=== PATIENT | female | born 1975 | race Caucasian/White ===

== ENCOUNTER → 2016-08-13 | Outpatient (CLI) | payer BC ==
--- NOTE | 2016-08-16 11:15 | MM ---
Reason for exam: additional evaluation requested from prior study. Last mammogram was performed 1 year ago. History: Patient had first child at age 36. Family history of premenopausal breast cancer in mother. Benign MG stereo VAD BX LT of the left breast, January 27, 2014. Took hormonal contraceptives for 19 years beginning at age 14. Physical Findings: Nurse did not find any significant physical abnormalities on exam. MG 3D Diag Mammo W/Cad MIHAI Bilateral CC and MLO view(s) were taken. Prior study comparison: August 08, 2015, bilateral MG 3d diag mammo w/cad MIHAI. August 02, 2014, bilateral MG diagnostic mammo w CAD MIHAI. January 18, 2014, left breast MG diagnostic mammo LT w CAD. July 28, 2013, bilateral digital screening mammo w/CAD. The breast tissue is heterogeneously dense. This may lower the sensitivity of mammography. Previous mammotome biopsy within the left breast. No significant new findings when compared with previous films. These results were verbally communicated with the patient and result sheet given to the patient on 08/13/16. ASSESSMENT: Negative, BI-RAD 1 RECOMMENDATION: Routine screening mammogram of both breasts in 1 year.
== END | disposition home or self-care (01) ==
LOC: RADMAMWWP 08:45
PROVIDERS: ATTEND Obstetrics & Gynecology
DX: R92.8 Other abnormal and inconclusive findings on diagnostic imaging of breast (principal)
CPT/HCPCS: G0204; G0279

== ENCOUNTER → 2017-07-30 | Outpatient (CLI) | payer BC ==
--- NOTE | 2017-07-30 11:23 | XR ---
EXAMINATION TYPE: XR chest 2V DATE OF EXAM: 07/30/2017 COMPARISON: NONE HISTORY: Cough for 4 months. TECHNIQUE: Frontal and lateral views of the chest are obtained. FINDINGS: There is retrocardiac opacity seen on 2 views. Right lung is clear. No pleural effusion or pneumothorax is present bilaterally. The cardiac silhouette size is within normal limits. The osse ous structures are intact. IMPRESSION: Suspect acute retrocardiac infiltrate.
== END ==
LOC: RADXRMAIN 10:45
PROVIDERS: ATTEND Otolaryngology
DX: R05 Cough (principal)
CPT/HCPCS: 71046

== ENCOUNTER → 2017-08-15 | Outpatient (CLI) | payer BC ==
--- NOTE | 2017-08-16 10:47 | MM ---
Reason for exam: screening (asymptomatic). Last mammogram was performed 1 year ago. History: Patient had first child at age 36. Family history of premenopausal breast cancer in mother. Benign MG stereo VAD BX LT of the left breast, January 27, 2014. Took hormonal contraceptives for 19 years beginning at age 14. Physical Findings: A clinical breast exam by your physician is recommended on an annual basis and results should be correlated with mammographic findings. MG 3D Screening Mammo W/Cad Bilateral CC and MLO view(s) were taken. Prior study comparison: August 13, 2016, bilateral MG 3d diag mammo w/cad MIHAI. August 08, 2015, bilateral MG 3d diag mammo w/cad MIHAI. The breast tissue is extremely dense which could obscure a lesion on mammography. No suspicious abnormality. Left biopsy marker noted. ASSESSMENT: Negative, BI-RAD 1 RECOMMENDATION: Routine screening mammogram of both breasts in 1 year.
== END | disposition home or self-care (01) ==
LOC: RADMAMWWP 09:00
PROVIDERS: ATTEND Obstetrics & Gynecology
DX: Z12.31 Encounter for screening mammogram for malignant neoplasm of breast (principal)
CPT/HCPCS: 77063; 77067

== ENCOUNTER → 2017-08-15 | Outpatient (CLI) | payer BC ==
--- NOTE | 2017-08-15 10:20 | XR ---
EXAMINATION TYPE: XR chest 2V DATE OF EXAM: 08/15/2017 COMPARISON: Chest x-ray July 30, 2017. HISTORY: Persistent cough. TECHNIQUE: Frontal and lateral views of the chest are obtained. FINDINGS: There is improved aeration in retrocardiac opacity. There is no new focal air space opacit y, pleural effusion, or pneumothorax seen. The cardiac silhouette size is stable and within normal l imits. The osseous structures are intact. IMPRESSION: Resolving retrocardiac infiltrate, no new infiltrate is seen.
== END | disposition home or self-care (01) ==
LOC: RADXRMAIN 09:18
PROVIDERS: ATTEND Otolaryngology
DX: R91.8 Other nonspecific abnormal finding of lung field (principal); R05 Cough
CPT/HCPCS: 71046

== ENCOUNTER → 2018-11-04 | Outpatient (CLI) | payer BC ==
--- NOTE | 2018-11-06 11:32 | MM ---
Reason for exam: screening (asymptomatic). Last mammogram was performed 1 year and 3 months ago. History: Patient had first child at age 36. Family history of premenopausal breast cancer in mother. Benign MG stereo VAD BX LT of the left breast, January 27, 2014. Took hormonal contraceptives for 19 years beginning at age 14. Physical Findings: A clinical breast exam by your physician is recommended on an annual basis and results should be correlated with mammographic findings. MG 3D Screening Mammo W/Cad Bilateral CC and MLO view(s) were taken. Prior study comparison: August 15, 2017, bilateral MG 3d screening mammo w/cad. August 13, 2016, bilateral MG 3d diag mammo w/cad MIHAI. The breast tissue is extremely dense which could obscure a lesion on mammography. Focal asymmetry left medial CC. No significant changes when compared with prior studies. ASSESSMENT: Benign, BI-RAD 2 RECOMMENDATION: Routine screening mammogram of both breasts in 1 year.
== END | disposition home or self-care (01) ==
LOC: RADMAMWWP 11:32
PROVIDERS: ATTEND Obstetrics & Gynecology
DX: Z12.31 Encounter for screening mammogram for malignant neoplasm of breast (principal); Z80.3 Family history of malignant neoplasm of breast
CPT/HCPCS: 77063; 77067

== ENCOUNTER → 2018-12-19 | Outpatient (CLI) | payer BC | END | disposition home or self-care (01) | LOC: LABWHC1 08:31 | PROVIDERS: ATTEND Internal Medicine Clinical Cardiac Electrophysiology | DX: I15.9 Secondary hypertension, unspecified (principal) | CPT/HCPCS: 36415; 82088; 82533; 83835 ==

== ENCOUNTER → 2019-02-03 | Outpatient (CLI) | payer BC ==
[2019-02-03 10:21] LABS: African American GFR (CKD) >90 (>60 ml/min/1.73 sqM); Anion Gap 8 mmol/L; Blood Urea Nitrogen 13 mg/dL (7-17); Carbon Dioxide 26 mmol/L (22-30); Chloride 105 mmol/L (98-107); HCT 43.1 % (34.0-46.0); HGB 13.7 gm/dL (11.4-16.0); MCHC 31.8 g/dL (31.0-37.0); MCV 97.5 fL (80.0-100.0); Mean Platelet Volume 6.1; Platelet Count 367 k/uL (150-450); Potassium 4.8 mmol/L (3.5-5.1); RBC 4.42 m/uL (3.80-5.40); RDW 12.2 % (11.5-15.5); Sodium 139 mmol/L (137-145); WBC 8.5 k/uL (3.8-10.6)
== END | disposition home or self-care (01) ==
LOC: LABPAT 08:44
PROVIDERS: ATTEND Internal Medicine Cardiovascular Disease
DX: Z01.812 Encounter for preprocedural laboratory examination (principal); I10 Essential (primary) hypertension
CPT/HCPCS: 36415; 80051; 82565; 84520; 85027

== ENCOUNTER 2019-02-05 08:01 | Day surgery (SDC) | payer BC ==
[2019-02-03 12:20] VITALS: BMI 31.4
[~2019-02-05 08:01] MED LIST: ALPRAZolam 0.25 MG TAB PO PRN; ALPRAZolam 0.5 MG TAB PO PRN; ASPIRIN 325 MG TAB PO STA; ATORVASTATIN 80 MG TAB PO STA; NITROGLYCERIN SL TABS 0.4 MG TAB SUBLINGUAL PRN; SODIUM CHLORIDE 0.9% 1,000 ML in EMPTY BAG 1 BAG IV ONE
[2019-02-05] MEDS ORDERED: LIDOCAINE 1% INJ 10MG/ML (20 ML MDV) ONE (08:29)
[2019-02-05 08:32] VITALS: RESP 16; TEMP 97.8
[2019-02-05] MEDS ORDERED: SODIUM CHLORIDE 0.9% 1,000 ML IV ONE (08:32)
[2019-02-05] MEDS: MIDAZOLAM 2 MG/2 ML VIAL IV ONE ×2 (08:49→08:55)
[2019-02-05] MEDS ORDERED: fentaNYL (PF) 50 MCG/ML 2 ML AMP ONE (08:50)
[2019-02-05] MEDS ORDERED: fentaNYL (PF) 50 MCG/ML 2 ML AMP IV ONE (08:54)
[2019-02-05] MEDS ORDERED: LIDOCAINE 1% INJ 10MG/ML (20 ML MDV) SQ ONE (09:00)
[2019-02-05] MEDS ORDERED: IOPAMIDOL-370 125ML BTL INJ ONE (09:09)
[2019-02-05] MEDS ORDERED: RX INFO: IV CONTRAST WAS GIVEN 1 EACH MISC MISCELLANE PRN (09:17)
[2019-02-05] MEDS ORDERED: SODIUM CHLORIDE 0.9% 1,000 ML IV SCH (09:30)
--- NOTE | 2019-02-05 09:38 | CC ---
CARDIAC CATHETERIZATION REPORT This is a 43-year-old lady who sees Dr. Rizzo in the office, had runs of nonsustained VT for which he advised her to undergo cardiac catheterization and requested me to perform the cardiac cath. Patient was explained of risks, benefits and alternatives by Dr. Rizzo and I spoke to the patient prior to procedure. . PROCEDURE NOTE: After obtaining informed consent, left heart catheterization and coronary angiogram were performed via the right femoral artery using standard Mario catheters. Patient tolerated the procedure well without any obvious immediate complications. A femoral angiogram was performed and Angio-Seal was deployed for hemostasis. Patient received moderate conscious sedation and total sedation time was 14 minutes. FINDINGS: 1. HEMODYNAMICS: Left ventricular end-diastolic pressure is 6-8 mm. There is no significant gradient across the aortic valve. 2. LEFT VENTRICULOGRAM: Left ventriculogram is not performed. 3. ANGIOGRAPHIC DATA: LEFT MAIN CORONARY ARTERY: Left main coronary artery is a normal-sized vessel and is free of stenosis. It divides into left anterior descending coronary artery and circumflex coronary artery. LAD and its branches, circumflex coronary artery and its branches are free of significant stenosis. Right coronary artery is a large dominant vessel and is free of significant disease. CONCLUSION: 1. Normal coronary arteries. 2. Normal left ventricular end-diastolic pressure. PLAN: Patient is doing well. I reviewed angiographic data with the patient and advised her to follow up with Dr. Rizzo in the office. MMODL / BRANDEEN: [id number] /
[2019-02-05 12:12] VITALS: PULSE 60
[2019-02-05 16:42] VITALS: BP 110/58
== END 2019-02-05 14:27 | disposition home or self-care (01) ==
LOC: CATHCVL 08:01
PROVIDERS: ATTEND Internal Medicine Cardiovascular Disease
DX: I47.2 Ventricular tachycardia (principal); I49.3 Ventricular premature depolarization; I10 Essential (primary) hypertension; F17.210 Nicotine dependence, cigarettes, uncomplicated; Z79.899 Other long term (current) drug therapy
CPT/HCPCS: 93458; 81025; C1760; C1894; C1769; J2250; J2001; J3010; Q9967

== ENCOUNTER → 2020-01-18 | Outpatient (CLI) | payer BC ==
--- NOTE | 2020-01-25 10:29 | MM ---
Reason for exam: screening (asymptomatic). Last mammogram was performed 1 year and 2 months ago. History: Patient had first child at age 36. Family history of premenopausal breast cancer in mother. Benign MG stereo VAD BX LT of the left breast, January 27, 2014. Took hormonal contraceptives for 19 years beginning at age 14. Physical Findings: A clinical breast exam by your physician is recommended on an annual basis and results should be correlated with mammographic findings. MG 3D Screening Mammo W/Cad Bilateral CC and MLO view(s) were taken. Prior study comparison: November 04, 2018, bilateral MG 3d screening mammo w/cad. August 15, 2017, bilateral MG 3d screening mammo w/cad. The breast tissue is heterogeneously dense. This may lower the sensitivity of mammography. Previous mammotome biopsy in the left breast. There is chronic nodularity in the left breast medially. No significant changes when compared with prior studies. ASSESSMENT: Benign, BI-RAD 2 RECOMMENDATION: Routine screening mammogram of both breasts in 1 year.
== END | disposition home or self-care (01) ==
LOC: RADMAMWWP 13:17
PROVIDERS: ATTEND Obstetrics & Gynecology
DX: Z12.31 Encounter for screening mammogram for malignant neoplasm of breast (principal)
CPT/HCPCS: 77063; 77067

== ENCOUNTER → 2020-01-19 | Outpatient (CLI) | payer BC ==
[2020-01-19 15:15] LABS: African American GFR (CKD) 126.7 (60.0-200.0); Anion Gap 10.3 mmol/L (4.00-12.00); Calcium 9.5 mg/dL (8.7-10.3); Carbon Dioxide 24.7 mmol/L (21.6-31.8); Chol/HDL Ratio 2.26; LDL Cholesterol,Calculated 41.6 mg/dL (0.0-131.0); Non-African American GFR(CKD) 109.3 (60.0-200.0); Potassium 4.8 mmol/L (3.5-5.5); VLDL Calculation 51.4 mg/dL (5.00-40.00)
== END | disposition home or self-care (01) ==
LOC: LABWHC1 08:51
PROVIDERS: ATTEND Physician Assistant
DX: I10 Essential (primary) hypertension (principal); E78.5 Hyperlipidemia, unspecified; R00.2 Palpitations
CPT/HCPCS: 36415; 80048; 80061; 84443

== ENCOUNTER → 2021-01-24 | Outpatient (CLI) | payer BC ==
--- NOTE | 2021-01-25 10:39 | MM ---
Reason for exam: screening (asymptomatic). Last mammogram was performed 1 year ago. History: Patient had first child at age 36. Family history of premenopausal breast cancer in mother. Benign MG stereo VAD BX LT of the left breast, January 27, 2014. Took hormonal contraceptives for 19 years beginning at age 14. Physical Findings: A clinical breast exam by your physician is recommended on an annual basis and results should be correlated with mammographic findings. MG 3D Screening Mammo W/Cad Bilateral CC and MLO view(s) were taken. Prior study comparison: January 18, 2020, bilateral MG 3d screening mammo w/cad. November 04, 2018, bilateral MG 3d screening mammo w/cad. The breast tissue is heterogeneously dense. This may lower the sensitivity of mammography. There is no discrete abnormality. No significant changes when compared with prior studies. ASSESSMENT: Negative, BI-RAD 1 RECOMMENDATION: Routine screening mammogram of both breasts in 1 year.
== END | disposition home or self-care (01) ==
LOC: RADMAMWWP 09:40
PROVIDERS: ATTEND Obstetrics & Gynecology
DX: Z12.31 Encounter for screening mammogram for malignant neoplasm of breast (principal)
CPT/HCPCS: 77063; 77067

== ENCOUNTER 2021-05-02 10:57 | Inpatient (IN) | payer BC ==
[2021-05-02] MEDS ORDERED: SODIUM CHLORIDE 0.9% 500 ML 500 ML IV STA (11:11)
--- NOTE | 2021-05-02 11:14 | ED ---
General Adult HPI - General Chief complaint: Chest Pain Stated complaint: heart palpitations, SOB Time Seen by Provider: 05/02/21 11:12 Source: patient, family, RN notes reviewed, old records reviewed Mode of arrival: wheelchair Limitations: no limitations - History of Present Illness Initial comments: This is a well-appearing 45-year-old female, alert and oriented x 4 that presents to the emergency room with family member complaining of palpitations and irregular heartbeat. Patient states it started at 6:30 this morning. She has a friend that is an ER doctor that told her she had an irregular heartbeat and should be seen in the ER. She states that she has seen Dr. Rizzo in the past had heart catheterization in 2019. History of atrial tachycardia. She states that her iPhone identified her rhythm as atrial fibrillation. She does take Lopressor and Norvasc denies taking an aspirin daily. She denies any nausea vomiting or fevers. -: hour(s) (5) Location: chest Radiation: non-radiation Severity scale (1-10): 0 Improves with: none Worsens with: none Associated Symptoms: shortness of breath Treatments Prior to Arrival: none - Related Data Home Medications Medication Instructions Recorded Confirmed ALPRAZolam [Xanax] 0.25 mg PO DAILY PRN 02/03/19 05/02/21 Latanoprost Ophth [Xalatan 0.005%] 1 drop BOTH EYES HS 05/02/21 05/02/21 Metoprolol Succinate (ER) [Toprol 75 mg PO DAILY 05/02/21 05/02/21 Xl] PARoxetine HCL [Paxil] 20 mg PO DAILY 05/02/21 05/02/21 Viorele 1 tab PO DAILY 05/02/21 05/02/21 amLODIPine [Norvasc] 1.25 mg PO HS 05/02/21 05/02/21 amLODIPine [Norvasc] 2.5 mg PO DAILY 05/02/21 05/02/21 Previous Rx's Medication Instructions Recorded Rivaroxaban [Xarelto] 20 mg PO W/SUPPER #90 tab 05/02/21 Allergies Allergy/AdvReac Type Severity Reaction Status Date / Time No Known Allergies Allergy Verified 05/02/21 13:35 Review of Systems ROS Statement: Those systems with pertinent positive or pertinent negative responses have been documented in the HPI. ROS Other: All systems not noted in ROS Statement are negative. Past Medical History Additional Past Medical History / Comment(s): states hx of palpitations, has been wearing 30 day heart monitor History of Any Multi-Drug Resistant Organisms: None Reported Past Surgical History: Section Past Anesthesia/Blood Transfusion Reactions: Previous Problems w/ Anesthesia Additional Past Anesthesia/Blood Transfusion Reaction / Comment(s): spinal went "up instead of down" gets nausea with anxiety Past Psychological History: Anxiety Smoking Status: Never smoker Past Alcohol Use History: Occasional Past Drug Use History: None Reported General Exam Limitations: no limitations General appearance: alert, in no apparent distress Eye exam: Present: normal appearance, EOMI. Absent: scleral icterus, conjunctival injection Respiratory exam: Present: normal lung sounds bilaterally. Absent: respiratory distress, wheezes, rales, rhonchi, stridor, chest wall tenderness, accessory muscle use Cardiovascular Exam: Present: tachycardia, irregular rhythm. Absent: JVD GI/Abdominal exam: Present: soft. Absent: tenderness, guarding, rebound, rigid Back exam: Present: normal inspection, full ROM. Absent: tenderness, CVA tenderness (R), CVA tenderness (L), rash noted Neurological exam: Present: alert, oriented X3 Psychiatric exam: Present: anxious Skin exam: Present: warm, dry, intact, normal color. Absent: rash, cyanosis, diaphoretic Course Vital Signs 05/02/21 05/02/21 05/02/21 11:02 12:14 12:23 Temperature 97.5 F L Pulse Rate 139 H 72 69 Respiratory 20 18 18 Rate Blood Pressure 158/102 160/128 88/67 O2 Sat by Pulse 99 98 95 Oximetry 05/02/21 05/02/21 05/02/21 12:39 13:23 14:49 Temperature Pulse Rate 84 75 71 Respiratory 18 18 18 Rate Blood Pressure 121/74 144/83 134/93 O2 Sat by Pulse 99 98 98 Oximetry 05/02/21 05/02/21 15:49 17:08 Temperature 98.9 F Pulse Rate 79 80 Respiratory 18 18 Rate Blood Pressure 140/95 157/87 O2 Sat by Pulse 98 96 Oximetry - Reevaluation(s) Reevaluation #1: 05/02/21 12:24 Called to the patient's bedside, patient states that she feels nauseated, hot and diaphoretic after Cardizem was started. Nurse states that the patient developed symptoms immediately upon starting Cardizem and was discontinued within 1 minute. Patient sinus rhythm 60 on monitor, blood pressure 89/67. Dr. Price at bedside. Patient was given 1 L bolus and Zofran, Cardizem was discon tinued. Patient denies any shortness of breath, lung sounds are clear to auscultation. No hives. Airway is clear no signs of swelling 05/02/21 17:38 Time: 12:24 Reevaluation #2: 05/02/21 12:58 Patient states that she is feeling much better, blood pressure is 120 systolic, heart rate of 75 normal sinus rhythm. Time: 12:58 EKG Findings - EKG Comments: EKG Findings:: Repeat EKG done at 1233 shows normal sinus rhythm with a ventricular rate of 75, CA interval 0.162, QRS 0.76, QTC 0.446 - EKG Results: EKG shows: atrial fibrillation (Ventricular rate 124, QRS 0.72, QTC 0.387; atrial fibrillation with rapid ventricular response) Medical Decision Making - Medical Decision Making 45-year-old female presents complaining of palpitations and irregular heartbeat that started at 6:30 this morning. She states that she has seen Dr. Rizzo in the past and had a heart catheterization in 2019. EKG shows atrial fibrillation with rapid ventricular rate of 124. Troponin is negative at 0.012. White blood cell count was 12.4, hemoglobin and hematocrit are stable. Co ronavirus is negative. TSH is within normal limits. Magnesium is 1.5 and she was given mag-ox. Chest x-ray shows no acute process. Patient was started on heparin and Cardizem. She did not tolerate the Cardizem infusion became diaphoretic nauseated, bradycardic and hypotensive. Airway remained clear. Lungs sounds are clear to auscultation. There is no urticaria. No bolus dose was given. Repeat EKG shows sinus rhythm. She was observed in the emergency room several hours after cardizem reaction and remained symptom-free. Patient will be admitted to the hospital for new onset atrial fibrillation. She was continued on heparin. Case was discussed with Dr. Price who was also at the bedside. - Lab Data Result diagrams: 05/02/21 11:47 05/02/21 11:47 Lab Results 05/02/21 05/02/21 05/02/21 Range/Units 11:47 11:47 11:47 WBC 12.4 H (3.8-10.6) k/uL RBC 4.40 (3.80-5.40) m/uL Hgb 14.9 (11.4-16.0) gm/dL Hct 45.6 (34.0-46.0) % MCV 103.7 H (80.0-100.0) fL MCH 33.8 (25.0-35.0) pg MCHC 32.6 (31.0-37.0) g/dL RDW 13.1 (11.5-15.5) % Plt Count 269 (150-450) k/uL MPV 7.5 Neutrophils % 84 % Lymphocytes % 11 % Monocytes % 3 % Eosinophils % 1 % Basophils % 0 % Neutrophils # 10.4 H (1.3-7.7) k/uL Lymphocytes # 1.4 (1.0-4.8) k/uL Monocytes # 0.4 (0-1.0) k/uL Eosinophils # 0.1 (0-0.7) k/uL Basophils # 0.0 (0-0.2) k/uL Macrocytosis Slight PT 10.2 (9.0-12.0) sec INR 0.9 (<1.2) APTT 24.5 (22.0-30.0) sec Sodium 137 (137-145) mmol/L Potassium 4.7 (3.5-5.1) mmol/L Chloride 108 H (98-107) mmol/L Carbon Dioxide 19 L (22-30) mmol/L Anion Gap 10 mmol/L BUN 10 (7-17) mg/dL Creatinine 0.45 L (0.52-1.04) mg/dL Est GFR (CKD-EPI)AfAm >90 (>60 ml/min/1.73 sqM) Est GFR (CKD-EPI)NonAf >90 (>60 ml/min/1.73 sqM) Glucose 117 H (74-99) mg/dL Calcium 9.3 (8.4-10.2) mg/dL Magnesium 1.5 L (1.6-2.3) mg/dL Total Bilirubin 0.6 (0.2-1.3) mg/dL AST 45 H (14-36) U/L ALT 23 (4-34) U/L Alkaline Phosphatase 101 (38-126) U/L Troponin I (0.000-0.034) ng/mL Total Protein 7.8 (6.3-8.2) g/dL Albumin 4.3 (3.5-5.0) g/dL TSH 2.650 (0.465-4.680) mIU/L 05/02/21 Range/Units 11:47 WBC (3.8-10.6) k/uL RBC (3.80-5.40) m/uL Hgb (11.4-16.0) gm/dL Hct (34.0-46.0) % MCV (80.0-100.0) fL MCH (25.0-35.0) pg MCHC (31.0-37.0) g/dL RDW (11.5-15.5) % Plt Count (150-450) k/uL MPV Neutrophils % % Lymphocytes % % Monocytes % % Eosinophils % % Basophils % % Neutrophils # (1.3-7.7) k/uL Lymphocytes # (1.0-4.8) k/uL Monocytes # (0-1.0) k/uL Eosinophils # (0-0.7) k/uL Basophils # (0-0.2) k/uL Macrocytosis PT (9.0-12.0) sec INR (<1.2) APTT (22.0-30.0) sec Sodium (137-145) mmol/L Potassium (3.5-5.1) mmol/L Chloride (98-107) mmol/L Carbon Dioxide (22-30) mmol/L Anion Gap mmol/L BUN (7-17) mg/dL Creatinine (0.52-1.04) mg/dL Est GFR (CKD-EPI)AfAm (>60 ml/min/1.73 sqM) Est GFR (CKD-EPI)NonAf (>60 ml/min/1.73 sqM) Glucose (74-99) mg/dL Calcium (8.4-10.2) mg/dL Magnesium (1.6-2.3) mg/dL Total Bilirubin (0.2-1.3) mg/dL AST (14-36) U/L ALT (4-34) U/L Alkaline Phosphatase (38-126) U/L Troponin I <0.012 (0.000-0.034) ng/mL Total Protein (6.3-8.2) g/dL Albumin (3.5-5.0) g/dL TSH (0.465-4.680) mIU/L Critical Care Time Critical Care Time: Yes Total Critical Care Time: 32 (Patient had adverse reaction to Cardizem drip became bradycardic, hypotensive, diaphoretic) Disposition Clinical Impression: New onset a-fib, Atrial fibrillation with RVR Disposition: ADMITTED IP TO THIS HOSP Decision Date: 05/02/21 Decision Time: 13:19
[2021-05-02] MEDS ORDERED: DILTIAZEM 125 MG in SODIUM CHLORIDE 0.9% 100 ML IV SCH (11:30)
[2021-05-02] MEDS ORDERED: ASPIRIN 81 MG PO STA (11:31)
[2021-05-02] MEDS ORDERED: HEPARIN SODIUM 1,000 UN/ML (10ML VL) IV ONE (11:34)
[2021-05-02] MEDS ORDERED: HEPARIN SODIUM 1,000 UN/ML (10ML VL) IV PRN (11:34)
[2021-05-02] MEDS ORDERED: HEPARIN SOD,PORK IN 0.45% NACL 25,000 UNIT in 0.45% NACL 1 250ML.BAG IV SCH (11:45)
--- NOTE | 2021-05-02 12:04 | XR ---
EXAMINATION TYPE: XR chest 2V DATE OF EXAM: 05/02/2021 COMPARISON: Prior chest x-ray August 15, 2017 HISTORY: Palpitations, shortness of breath, and chest pain. TECHNIQUE: Frontal and lateral views of the chest are obtained. FINDINGS: There is no suspicious focal air space opacity, pleural effusion, or pneumothorax seen. T he cardiac silhouette size remains within normal limits. The osseous structures are intact. Overlyi ng EKG leads are now present. IMPRESSION: No acute process currently.
[2021-05-02 12:14] LABS: Basophils % (A) 0 %; Eosinophils # (A) 0.1 k/uL (0-0.7); Eosinophils % (A) 1 %; HCT 45.6 % (34.0-46.0); HGB 14.9 gm/dL (11.4-16.0); Lymphocytes # (A) 1.4 k/uL (1.0-4.8); Lymphocytes % (A) 11 %; MCH 33.8 pg (25.0-35.0); MCHC 32.6 g/dL (31.0-37.0); MCV 103.7 fL (80.0-100.0); Macrocytosis Slight; Mean Platelet Volume 7.5; Monocytes # (A) 0.4 k/uL (0-1.0); Monocytes % (A) 3 %; Neutrophils # (A) 10.4 k/uL (1.3-7.7); Neutrophils % (A) 84 %; Platelet Count 269 k/uL (150-450); RDW 13.1 % (11.5-15.5); WBC 12.4 k/uL (3.8-10.6)
[2021-05-02 12:19] LABS: ALT 23 U/L (4-34); AST 45 U/L (14-36); African American GFR (CKD) >90 (>60 ml/min/1.73 sqM); Albumin 4.3 g/dL (3.5-5.0); Alkaline Phosphatase 101 U/L (38-126); Anion Gap 10 mmol/L; Blood Urea Nitrogen 10 mg/dL (7-17); Calcium 9.3 mg/dL (8.4-10.2); Carbon Dioxide 19 mmol/L (22-30); Chloride 108 mmol/L (98-107); Glucose 117 mg/dL (74-99); Magnesium 1.5 mg/dL (1.6-2.3); Non-African American GFR(CKD) >90 (>60 ml/min/1.73 sqM); Potassium 4.7 mmol/L (3.5-5.1); Sodium 137 mmol/L (137-145); Total Bilirubin 0.6 mg/dL (0.2-1.3); Total Protein 7.8 g/dL (6.3-8.2)
[2021-05-02] MEDS ORDERED: SODIUM CHLORIDE 0.9% 1,000 ML IV STA (12:23)
[2021-05-02] MEDS ORDERED: ONDANSETRON 4 MG/2 ML VIAL IVP STA (12:23)
[2021-05-02] MEDS ORDERED: MAGNESIUM OXIDE 400 MG TAB PO STA (12:28)
[2021-05-02 12:41] LABS: INR 0.9 (<1.2); Partial Thromboplastin Time 24.5 sec (22.0-30.0); Prothrombin Time 10.2 sec (9.0-12.0)
[2021-05-02] MEDS ORDERED: ACETAMINOPHEN TAB 325 MG TAB PO PRN (13:19)
[2021-05-02] MEDS ORDERED: NALOXONE 0.4 MG/ML 1 ML VIAL IV PRN (13:19)
[2021-05-02] MEDS ORDERED: ONDANSETRON 4 MG/2 ML VIAL IVP PRN (13:19)
[2021-05-02] MEDS: SODIUM CHLORIDE 0.9% 1,000 ML IV SCH (13:55)
--- NOTE | 2021-05-02 14:42 | P.CRDCN ---
History of Present Illness Consult date: 05/02/21 History of present illness: HISTORY OF PRESENT ILLNESS: This is a 45 year old female with a past medical history significant for nonsustained ventricular tachycardia and hypertension. Patient follows in the office with Dr. Rizzo. We have been asked to see the patient in consultation for atrial fibrillation. Patient examined at the bedside. patient states she woke up this morning and was having palpitations. She reports feeling mildly short of breath with this. She denies having any chest pain or pressure. She states she has had palpitations intermittently in the past but they usually only last for a very short time and then go away. However this episode lasted much longer so she decided to come to the emergency room. The patient was found to be in A. fib with RVR upon arrival to the hospital. Patient was started on IV Cardizem and developed some hypotension and diaphoresis. Her IV Cardizem was discontinued. The patient did convert to sinus mechanism. the patient was also started on IV heparin. The patient is a former smoker. She reports occasional alcohol use. She denies any family history of atrial fibrillation. EKG reveals atrial fibrillation with RVR. Repeat EKG reveals sinus mechanism. Chest xray negative for acute process Laboratory data: WBC 12.4. Hemoglobin 14.9. Platelet count 269. Sodium 137. Potassium 4.7. BUN 10. Creatinine 0.45. Magnesium 1.5. Troponin negative 1. TSH 2.620. Coronavirus testing was negative. Current home cardiac medications include metoprolol succinate 75 mg daily, and Norvasc 2.5 mg in the morning and 1.25 mg at night Most recent echocardiogram obtained in 2019 revealed ejection fraction 55%, mild LVH, and RVSP of 31 Cardiac catheterization history: January 2019 revealing normal coronary arteries. Normal left ventricular end-diastolic pressure. REVIEW OF SYSTEMS: At the time of my exam: CONSTITUTIONAL: Denies fever or chills. HEENT: Denies blurred vision, vision changes, or eye pain. Denies hemoptysis CARDIOVASCULAR: Denies chest pain. Denies orthopnea. Denies PND. Denies palpitations RESPIRATORY: Denies shortness of breath. GASTROINTESTINAL: Denies abdominal pain. Denies nausea or vomiting. HEMATOLOGIC: Denies bleeding disorders. GENITOURINARY: Denies any blood in urine. SKIN: Denies pruitis. Denies rash. PHYSICAL EXAM: VITAL SIGNS: Reviewed. GENERAL: Well-developed in no acute distress. HEENT: Head is normocephalic. Pupils are equal, round. Sclerae anicteric. Mucous membranes of the mouth are moist. Neck supple. No JVD or thyromegaly LUNGS: Respirations even and unlabored. Lungs essentially clear to auscultation bilaterally. HEART: Regular rate and rhythm. S1 and S2 heard. ABDOMEN: Soft. Nondistended. Nontender. EXTREMITIES: Normal range of motion. No clubbing or cyanosis. Peripheral pulses intact. No lower extremity edema NEUROLOGIC: Awake and alert. Oriented x 3. ASSESSMENT: Palpitations New onset paroxysmal atrial fibrillation with RVR, currently maintaining sinus mechanism Hypertension, uncontrolled on admission History of nonsustained ventricular tachycardia Hypomagnesemia PLAN: Obtain 2D echo to assess cardiac structure and function Begin Xarelto 20mg tonight. DC IV heparin after Xarelto has been given Resume Metoprolol. Increase dosage to 100mg daily. Resume amlodipine. Increase dosage to 5 mg twice a day as patient has uncontrolled hypertension Continue telemetry monitoring Magnesium supplemented in ER. Recheck tomorrow. Further recommendations pending patient course Nurse practitioner note has been reviewed by physician. Signing provider agrees with the documented findings, assessment, and plan of care. Past Medical History Additional Past Medical History / Comment(s): states hx of palpitations, has been wearing 30 day heart monitor History of Any Multi-Drug Resistant Organisms: None Reported Past Surgical History: Section Past Anesthesia/Blood Transfusion Reactions: Previous Problems w/ Anesthesia Additional Past Anesthesia/Blood Transfusion Reaction / Comment(s): spinal went "up instead of down" gets nausea with anxiety Past Psychological History: Anxiety Smoking Status: Never smoker Past Alcohol Use History: Occasional Past Drug Use History: None Reported Medications and Allergies Home Medications Medication Instructions Recorded Confirmed Type ALPRAZolam [Xanax] 0.25 mg PO DAILY PRN 02/03/19 05/02/21 History Latanoprost Ophth [Xalatan 0.005%] 1 drop BOTH EYES HS 05/02/21 05/02/21 History Metoprolol Succinate (ER) [Toprol 75 mg PO DAILY 05/02/21 05/02/21 History Xl] PARoxetine HCL [Paxil] 20 mg PO DAILY 05/02/21 05/02/21 History Rivaroxaban [Xarelto] 20 mg PO W/SUPPER #90 tab 05/02/21 Rx Viorele 1 tab PO DAILY 05/02/21 05/02/21 History amLODIPine [Norvasc] 1.25 mg PO HS 05/02/21 05/02/21 History amLODIPine [Norvasc] 2.5 mg PO DAILY 05/02/21 05/02/21 History Allergies Allergy/AdvReac Type Severity Reaction Status Date / Time No Known Allergies Allergy Verified 05/02/21 13:35 Physical Exam Vitals: Vital Signs Temp Pulse Resp BP Pulse Ox 05/02/21 13:23 75 18 144/83 98 05/02/21 12:39 84 18 121/74 99 05/02/21 12:23 69 18 88/67 95 05/02/21 12:14 72 18 160/128 98 05/02/21 11:02 97.5 F L 139 H 20 158/102 99 Intake and Output 05/01/21 05/02/21 05/02/21 22:59 06:59 14:59 Other: Weight 90.718 kg Results 05/02/21 11:47 05/02/21 11:47 Cardiac Enzymes 05/02/21 05/02/21 Range/Units 11:47 11:47 AST 45 H (14-36) U/L Troponin I <0.012 (0.000-0.034) ng/mL Coagulation 05/02/21 Range/Units 11:47 PT 10.2 (9.0-12.0) sec APTT 24.5 (22.0-30.0) sec CBC 05/02/21 Range/Units 11:47 WBC 12.4 H (3.8-10.6) k/uL RBC 4.40 (3.80-5.40) m/uL Hgb 14.9 (11.4-16.0) gm/dL Hct 45.6 (34.0-46.0) % Plt Count 269 (150-450) k/uL Comprehensive Metabolic Panel 05/02/21 Range/Units 11:47 Sodium 137 (137-145) mmol/L Potassium 4.7 (3.5-5.1) mmol/L Chloride 108 H (98-107) mmol/L Carbon Dioxide 19 L (22-30) mmol/L BUN 10 (7-17) mg/dL Creatinine 0.45 L (0.52-1.04) mg/dL Glucose 117 H (74-99) mg/dL Calcium 9.3 (8.4-10.2) mg/dL AST 45 H (14-36) U/L ALT 23 (4-34) U/L Alkaline Phosphatase 101 (38-126) U/L Total Protein 7.8 (6.3-8.2) g/dL Albumin 4.3 (3.5-5.0) g/dL Current Medications Generic Name Dose Route Start Last Admin Trade Name Freq PRN Reason Stop Dose Admin Acetaminophen 650 mg 05/02/21 13:19 Acetaminophen Tab 325 Mg Tab PO Q6HR PRN Mild Pain or Fever > 100.5 Heparin Sodium (Porcine) 0 unit 05/02/21 11:34 Heparin Sodium 1,000 Un/Ml (10ml Vl) IV PER PROTOCOL PRN Low PTT Protocol Diltiazem HCl 125 mg/ Sodium 125 mls @ 5 mls/hr 05/02/21 11:30 05/02/21 12:05 Chloride IV 5 mg/hr .Q24H WENCESLAO 5 mls/hr Administration 5 MG/HR Heparin Sodium/Sodium Chloride 250 mls @ 10 mls/hr 05/02/21 11:45 05/02/21 12:13 25,000 unit/ Sodium Chloride IV 11.023 units/kg/hr .Q24H WENCESLAO 10 mls/hr Administration Protocol 11.023 UNITS/KG/HR Sodium Chloride 1,000 mls @ 75 mls/hr 05/02/21 13:30 05/02/21 13:55 Saline 0.9% IV 75 mls/hr .[id number] WENCESLAO Administration Naloxone HCl 0.2 mg 05/02/21 13:19 Naloxone 0.4 Mg/Ml 1 Ml Vial IV Q2M PRN Opioid Reversal Ondansetron HCl 4 mg 05/02/21 13:19 Ondansetron 4 Mg/2 Ml Vial IVP Q8HR PRN Nausea And Vomiting Intake and Output 05/01/21 05/02/21 05/02/21 22:59 06:59 14:59 Other: Weight 90.718 kg Patient Weight 05/03/21 06:59 Weight 90.718 kg 05/02/21 11:47 05/02/21 11:47
[2021-05-02] MEDS ORDERED: METOPROLOL SUCCINATE (ER) 25 MG TAB.ER.24H PO SCH (14:45)
[2021-05-02] MEDS ORDERED: amLODIPine 5 MG TAB PO SCH (14:45)
[2021-05-02] MEDS: METOPROLOL SUCCINATE (ER) 100 MG TAB.ER.24H PO SCH (15:48)
[2021-05-02] MEDS: FOLIC ACID 1 MG TAB PO SCH (15:48)
[2021-05-02] MEDS ORDERED: RIVAROXABAN 20 MG TAB PO SCH (17:30)
[2021-05-02] MEDS: THIAMINE 100 MG TAB PO SCH (18:40)
[2021-05-02] MEDS: amLODIPine 5 MG TAB PO SCH (20:10)
[2021-05-02] MEDS ORDERED: LATANOPROST 0.005% OPHTH DROPS 2.5 ML BTL BOTH EYES SCH (21:00)
--- NOTE | 2021-05-03 00:23 | P.HPIM ---
History of Present Illness H&P Date: 05/02/21 Chief Complaint: palpitations Patient is a 45-year-old female with a known history of palpitations, anxiety, daily alcohol use and previous history of nonsustained V. tach, hypertension presents to ER with complaints of palpitations. Patient woke up this morning and since then she has been having heart beating fast and dizziness. Patient is also having mild short of breath. Denies any chest pain. No fever no chills. No cough or sputum production. Patient does have history of palpitations and is on follow-up with Dr. Rizzo as an outpatient. Denied any recent illnesses. Patient states that she has been drinking about 2 glasses of wine daily. Chest x-ray showed no acute cardiopulmonary process EKG showed atrial fibrillation with rapid ventricular rate. Laboratory data showed WBC 12.4 hemoglobin 14.9 and MCV 103.7 platelets 269 Sodium 137 potassium 4.7 chloride 108 bicarb is 18 BUN 10 and creatinine 0.45 magnesium 1.5 AST 45 ALT 23 and alk phos 101 and troponin less than 0.012 TSH level is 2.65 and coronavirus PCR not detected. Review of Systems Constitutional: Patient denies any fever or chills . No generalized weakness or weight loss. Abdomen: Patient denied nausea vomiting and diarrhea and abdominal pain. Cardiovascular: Patient denies any chest pain or short of breath . +palpitations. Respiratory: patient denied any cough or sputum production. No shortness of breath Neurologic: Patient denied any numbness or tingling headache. Musculoskeletal: Patient denies any complaints of joint swelling or deformity. Skin: Negative Psychiatric: Negative Endocrine: No heat or cold intolerance. No recent weight gain. Genitourinary: No dysuria or hematuria. All other 14 point ROS negative except the above Past Medical History Additional Past Medical History / Comment(s): states hx of palpitations, has been wearing 30 day heart monitor History of Any Multi-Drug Resistant Organisms: None Reported Past Surgical History: Section Past Anesthesia/Blood Transfusion Reactions: Previous Problems w/ Anesthesia Additional Past Anesthesia/Blood Transfusion Reaction / Comment(s): spinal went "up instead of down" gets nausea with anxiety Past Psychological History: Anxiety Smoking Status: Never smoker Past Alcohol Use History: Occasional Past Drug Use History: None Reported - Past Family History Mother Family Medical History: Cancer Father Additional Family Medical History / Comment(s): at age 56 unknown Medications and Allergies Home Medications Medication Instructions Recorded Confirmed Type ALPRAZolam [Xanax] 0.25 mg PO DAILY PRN 02/03/19 05/02/21 History Latanoprost Ophth [Xalatan 0.005%] 1 drop BOTH EYES HS 05/02/21 05/02/21 History Metoprolol Succinate (ER) [Toprol 75 mg PO DAILY 05/02/21 05/02/21 History Xl] PARoxetine HCL [Paxil] 20 mg PO DAILY 05/02/21 05/02/21 History Rivaroxaban [Xarelto] 20 mg PO W/SUPPER #90 tab 05/02/21 Rx Viorele 1 tab PO DAILY 05/02/21 05/02/21 History amLODIPine [Norvasc] 1.25 mg PO HS 05/02/21 05/02/21 History amLODIPine [Norvasc] 2.5 mg PO DAILY 05/02/21 05/02/21 History Allergies Allergy/AdvReac Type Severity Reaction Status Date / Time No Known Allergies Allergy Verified 05/02/21 13:35 Physical Exam Vitals: Vital Signs Temp Pulse Resp BP Pulse Ox 05/02/21 13:23 75 18 144/83 98 05/02/21 12:39 84 18 121/74 99 05/02/21 12:23 69 18 88/67 95 05/02/21 12:14 72 18 160/128 98 05/02/21 11:02 97.5 F L 139 H 20 158/102 99 Intake and Output 05/01/21 05/02/21 05/02/21 22:59 06:59 14:59 Other: Weight 90.718 kg PHYSICAL EXAMINATION: Patient is lying in the bed comfortably, no acute distress, awake alert and oriented.. HEENT: Normocephalic. Neck is supple. Pupils reactive. Nostrils clear. Oral cavity is moist. Neck reveals no JVD, carotid bruits, or thyromegaly. CHEST EXAMINATION: Trachea is central. Symmetrical expansion. Lung costa clear to auscultation and percussion. CARDIAC: Normal S1, S2 with no gallops. No murmurs ABDOMEN: Soft. Bowel sounds normal. No organomegaly. No abdominal bruits. Extremities: reveal no edema. No clubbing or cyanosis Neurologically awake, alert, oriented x3 with well-coordinated movements. No focal deficits noted Skin: No rash or skin lesions. Psychiatric: Cooperative. Nonsuicidal, anxious Musculoskeletal: No joint swelling or deformity. Normal range of motion. Results CBC & Chem 7: 05/02/21 11:47 05/02/21 11:47 Labs: Abnormal Lab Results - Last 24 Hours (Table) 05/02/21 05/02/21 Range/Units 11:47 11:47 WBC 12.4 H (3.8-10.6) k/uL MCV 103.7 H (80.0-100.0) fL Neutrophils # 10.4 H (1.3-7.7) k/uL Chloride 108 H (98-107) mmol/L Carbon Dioxide 19 L (22-30) mmol/L Creatinine 0.45 L (0.52-1.04) mg/dL Glucose 117 H (74-99) mg/dL Magnesium 1.5 L (1.6-2.3) mg/dL AST 45 H (14-36) U/L Thrombosis Risk Factor Assmnt - DVT/VTE Prophylaxis DVT/VTE Prophylaxis: Pharmacologic Prophylaxis ordered Assessment and Plan Assessment: New onset atrial fibrillation with rapid regular rate. Currently converted to sinus rhythm. History of palpitations and is on follow-up with cardiology, was on event monitor. Uncontrolled hypertension Daily alcohol use Hypomagnesemia \\ anxiety/depression Macrocytosis secondary to EtOH use Plan: Placed on telemetry monitoring. Patient was started on Cardizem drip and heparin drip. Heart rate is controlled at this time. Patient will be started back on metoprolol. Patient was started on Xarelto as per cardiology recommendations. Patient will be started on thiamine and folic acid and monitor for alcohol withdrawal symptoms.Continue with IV hydration. Cardiology is on board. Continue to follow closely. Time with Patient: Greater than 30
[2021-05-03 01:18] VITALS: RESP 18
[2021-05-03] MEDS: SODIUM CHLORIDE 0.9% 1,000 ML IV SCH ×2 (05:05→11:06)
--- NOTE | 2021-05-03 07:48 | ECHOF ---
Referral Reason:new onset afib MEASUREMENTS -------- HEIGHT: 165.1 cm WEIGHT: 90.7 kg BP: RVIDd: 2.9 cm (< 3.3) IVSd: 1.1 cm (0.6 - 1.1) LVIDd: 4.9 cm (3.9 - 5.3) LVPWd: 1.0 cm (0.6 - 1.1) IVSs: 1.6 cm LVIDs: 3.3 cm LVPWs: 1.5 cm LA Diam: 4.0 cm (2.7 - 3.8) LAESV Index (A-L): 33.01 ml/m MV EXCURSION: 15.618 mm (> 18.000) MV EF SLOPE: 60 mm/s (70 - 150) EPSS: 0.3 cm MV E Hitesh: 0.55 m/s MV DecT: 201 ms MV A Hitesh: 0.99 m/s MV E/A Ratio: 0.56 RAP: 5.00 mmHg RVSP: 35.53 mmHg FINDINGS -------- Sinus rhythm. This was a technically good study. LV size, wall thickness and systolic function are normal, with an EF greater than 55%. The left jorge tricular size is normal. The right ventricle is normal in size. LA is midly dilated 29-33ml/m2. The right atrial size is normal. The aortic valve is trileaflet, and appears structurally normal. No aortic stenosis or regurgitation. Mild mitral regurgitation is present. Mild tricuspid regurgitation present. There is mild pulmonary hypertension. There is no pulmonic regurgitation present. There is no pericardial effusion. CONCLUSIONS -------- 1. LV size, wall thickness and systolic function are normal, with an EF greater than 55%. 2. The left ventricular size is normal. 3. The right ventricle is normal in size. 4. LA is midly dilated 29-33ml/m2. 5. The right atrial size is normal. 6. The aortic valve is trileaflet, and appears structurally normal. No aortic stenosis or regurgitati on. 7. Mild mitral regurgitation is present. 8. Mild tricuspid regurgitation present. 9. There is mild pulmonary hypertension. 10. There is no pericardial effusion. MUSHROOM PRESS OPERATOR: Scarlet Hays RDCS
[2021-05-03 08:15] LABS: Basophils % (A) 0 %; Eosinophils # (A) 0.1 k/uL (0-0.7); Eosinophils % (A) 1 %; HGB 13.8 gm/dL (11.4-16.0); Lymphocytes # (A) 1.9 k/uL (1.0-4.8); Lymphocytes % (A) 23 %; MCH 33.6 pg (25.0-35.0); MCHC 31.4 g/dL (31.0-37.0); Macrocytosis Moderate; Mean Platelet Volume 7.8; Monocytes # (A) 0.5 k/uL (0-1.0); Monocytes % (A) 6 %; Neutrophils # (A) 5.5 k/uL (1.3-7.7); Neutrophils % (A) 69 %; Platelet Count 237 k/uL (150-450); RBC 4.11 m/uL (3.80-5.40); RDW 12.4 % (11.5-15.5)
[2021-05-03 08:18] LABS: Prothrombin Time 10.9 sec (9.0-12.0)
[2021-05-03 08:40] LABS: African American GFR (CKD) >90 (>60 ml/min/1.73 sqM); Anion Gap 8 mmol/L; Blood Urea Nitrogen 7 mg/dL (7-17); Calcium 8.8 mg/dL (8.4-10.2); Carbon Dioxide 22 mmol/L (22-30); Chloride 107 mmol/L (98-107); Glucose 100 mg/dL (74-99); Magnesium 1.8 mg/dL (1.6-2.3); Non-African American GFR(CKD) >90 (>60 ml/min/1.73 sqM); Potassium 4.2 mmol/L (3.5-5.1); Sodium 137 mmol/L (137-145)
[2021-05-03 08:48] VITALS: BP 156/87; PULSE 75; TEMP 98
[2021-05-03] MEDS: THIAMINE 100 MG TAB PO SCH (08:48)
[2021-05-03] MEDS: METOPROLOL SUCCINATE (ER) 100 MG TAB.ER.24H PO SCH (08:48)
[2021-05-03] MEDS: FOLIC ACID 1 MG TAB PO SCH (08:49)
[2021-05-03] MEDS: amLODIPine 5 MG TAB PO SCH (08:49)
[2021-05-03] MEDS ORDERED: PARoxetine 20 MG TAB PO SCH (09:00)
--- NOTE | 2021-05-03 12:24 | P.PN ---
Subjective Progress Note Date: 05/03/21 HISTORY OF PRESENT ILLNESS: This is a 45 year old female with a past medical history significant for nonsustained ventricular tachycardia and hypertension. Patient follows in the office with Dr. Rizzo. We have been asked to see the patient in consultation for atrial fibrillation. Patient examined at the bedside. patient states she woke up this morning and was having palpitations. She reports feeling mildly short of breath with this. She denies having any chest pain or pressure. She states she has had palpitations intermittently in the past but they usually only last for a very short time and then go away. However this episode lasted much longer so she decided to come to the emergency room. The patient was found to be in A. fib with RVR upon arrival to the hospital. Patient was started on IV Cardizem and developed some hypotension and diaphoresis. Her IV Cardizem was discontinued. The patient did convert to sinus mechanism. the patient was also started on IV heparin. The patient is a former smoker. She reports occasional alcohol use. She denies any family history of atrial fibrillation. EKG reveals atrial fibrillation with RVR. Repeat EKG reveals sinus mechanism. Chest xray negative for acute process Laboratory data: WBC 12.4. Hemoglobin 14.9. Platelet count 269. Sodium 137. Potassium 4.7. BUN 10. Creatinine 0.45. Magnesium 1.5. Troponin negative 1. TSH 2.620. Coronavirus testing was negative. Current home cardiac medications include metoprolol succinate 75 mg daily, and Norvasc 2.5 mg in the morning and 1.25 mg at night Most recent echocardiogram obtained in 2018 revealed ejection fraction 55%, mild LVH, and RVSP of 31 Cardiac catheterization history: January 2019 revealing normal coronary arteries. Normal left ventricular end-diastolic pressure. 05/03/2021 Patient examined this where the bedside. Patient denies chest pain or pressure. She denies shortness of breath. Telemetry reveals sinus mechanism. Patient has been started on Xarelto. Patient's amlodipine was increased yesterday. Blood pressure slightly improved today. Echocardiogram completed revealing ejection fraction greater than 55%, mild mitral regurgitation, and mild tricuspid regurgitation. PHYSICAL EXAM: VITAL SIGNS: Reviewed. GENERAL: Well-developed in no acute distress. HEENT: Head is normocephalic. Pupils are equal, round. Sclerae anicteric. Mucous membranes of the mouth are moist. Neck supple. No JVD or thyromegaly LUNGS: Respirations even and unlabored. Lungs essentially clear to auscultation bilaterally. HEART: Regular rate and rhythm. S1 and S2 heard. ABDOMEN: Soft. Nondistended. Nontender. EXTREMITIES: Normal range of motion. No clubbing or cyanosis. Peripheral pulses intact. No lower extremity edema NEUROLOGIC: Awake and alert. Oriented x 3. ASSESSMENT: Palpitations New onset paroxysmal atrial fibrillation with RVR, currently maintaining sinus mechanism Hypertension, uncontrolled on admission History of nonsustained ventricular tachycardia Hypomagnesemia Frequent alcohol use PLAN: Recommend abstinence from alcohol Continue current cardiac medications including Xarelto, amlodipine, and metoprolol Recommend outpatient evaluation of sleep apnea Patient is stable for discharge home today from a cardiac standpoint She is to follow up outpatient with Dr. Rizzo Nurse practitioner note has been reviewed by physician. Signing provider agrees with the documented findings, assessment, and plan of care. Objective - Vital Signs Vital signs: Vital Signs Temp 98 F 05/03/21 08:00 Pulse 75 05/03/21 08:00 Resp 18 05/03/21 08:00 BP 156/87 05/03/21 08:00 Pulse Ox 96 05/03/21 08:00 Intake & Output 05/02/21 05/03/21 05/03/21 18:59 06:59 18:59 Intake Total 180 Balance 180 Weight 90.718 kg Intake: Oral 180 Other: # Voids 2 - Labs CBC & Chem 7: 05/03/21 06:53 05/03/21 06:53 Labs: Abnormal Lab Results - Last 24 Hours (Table) 05/02/21 05/02/21 05/03/21 Range/Units 11:47 17:05 06:53 MCV 107.0 H (80.0-100.0) fL APTT 30.7 H (22.0-30.0) sec Chloride 108 H (98-107) mmol/L Carbon Dioxide 19 L (22-30) mmol/L Creatinine 0.45 L (0.52-1.04) mg/dL Glucose 117 H (74-99) mg/dL Magnesium 1.5 L (1.6-2.3) mg/dL AST 45 H (14-36) U/L 05/03/21 Range/Units 06:53 MCV (80.0-100.0) fL APTT (22.0-30.0) sec Chloride (98-107) mmol/L Carbon Dioxide (22-30) mmol/L Creatinine 0.45 L (0.52-1.04) mg/dL Glucose 100 H (74-99) mg/dL Magnesium (1.6-2.3) mg/dL AST (14-36) U/L
== END 2021-05-03 13:18 | disposition home or self-care (01) | DRG 310 ==
LOC: EC 10:57 → 3SCARD 13:19
PROVIDERS: ADMIT Hospitalist; ATTEND Hospitalist
DX: I48.0 Paroxysmal atrial fibrillation (principal); I08.1 Rheumatic disorders of both mitral and tricuspid valves; R00.2 Palpitations; D75.89 Other specified diseases of blood and blood-forming organs; Z20.822 Contact with and (suspected) exposure to COVID-19; E83.42 Hypomagnesemia; I27.20 Pulmonary hypertension, unspecified; I95.9 Hypotension, unspecified; F32.A Depression, unspecified; F41.9 Anxiety disorder, unspecified; I10 Essential (primary) hypertension; Z79.01 Long term (current) use of anticoagulants; Z79.899 Other long term (current) drug therapy; Z87.891 Personal history of nicotine dependence; Z86.79 Personal history of other diseases of the circulatory system
CPT/HCPCS: 36415; 71046; 80048; 80053; 83735; 84443; 84484; 85025; 85610; 85730; 87635; 93005; 93306; 96365; 96366; 96367; 99291

== ENCOUNTER → 2021-08-02 | Outpatient (CLI) | payer BC ==
[2021-08-02 16:11] LABS: Chol/HDL Ratio 2.32 Ratio; LDL Cholesterol,Calculated 56.8 mg/dL (0.0-131.0)
== END | disposition home or self-care (01) ==
LOC: LABWHC1 08:25
PROVIDERS: ATTEND Physician Assistant Medical
DX: Z13.220 Encounter for screening for lipoid disorders (principal)
CPT/HCPCS: 36415; 80061

== ENCOUNTER → 2021-08-02 | Outpatient (CLI) | payer BC ==
[2021-08-02 14:42] LABS: Basophils # (A) 0.04 X 10*3/uL (0.00-0.10); Basophils % (A) 0.3 %; Eosinophils # (A) 0.15 X 10*3/uL (0.04-0.35); HCT 43.1 % (37.2-46.3); HGB 13.5 g/dL (12.0-15.0); Immature Grans, Automated 0.3 %; Lymphocytes # (A) 1.85 X 10*3/uL (0.90-5.00); Lymphocytes % (A) 12.8 %; MCH 30.4 pg (27.0-32.0); MCHC 31.3 g/dL (32.0-37.0); MCV 97.1 fL (80.0-97.0); Mean Platelet Volume 10.2 fL (9.5-12.2); Monocytes # (A) 0.87 X 10*3/uL (0.20-1.00); NRBC Per 100 WBC 0 /100 WBCS (0.0-0.0); Neutrophils # (A) 11.52 X 10*3/uL (1.80-7.70); Neutrophils % (A) 79.6 %; Platelet Count 311 X 10*3/uL (140-440); RBC 4.44 X 10*6/uL (4.10-5.20); RDW 13.7 % (11.5-14.5); WBC 14.47 X 10*3/uL (4.50-10.00)
== END | disposition home or self-care (01) ==
LOC: LABPAT 08:23
PROVIDERS: ATTEND Obstetrics & Gynecology
DX: Z01.812 Encounter for preprocedural laboratory examination (principal)
CPT/HCPCS: 85025

== ENCOUNTER 2021-08-10 06:19 | Day surgery (SDC) | payer BC ==
[2021-08-09 08:32] VITALS: BMI 33.9
--- NOTE | 2021-08-09 20:37 | P.HPOB ---
History of Present Illness H&P Date: 08/09/21 Chief Complaint: Menorrhagia with regular cycle This is a 46 y.o. female, 1, para 1, who presents for dilatation and curettage with hysteroscopy and Novasure endometrial ablation due to menorrhagia with regular cycle. She was placed on Xarelto for atrial fibrillation and began bleeding extremely heavy. She is also on control pills which do help, but she would like to stop them due to her cardiac issues. Her has had a vasectomy. Menses are currently coming every 28 days and lasting 3-4 days on control pills, but on Xarelto, she was bleeding much heavier. Pelvic ultrasound showed uterus measuring 9.6 x 5.1 x 4.7 cm, possible 8 mm fibroid, endometrium 1.5cm, ovaries normal. OB Hx: . History of 1 section. Chief Nursing Officer Hx: No history of STDs Social Hx: . Owns [employer] business. Review of Systems Constitutional: Denies chills, Denies fever Eyes: denies blurred vision, denies pain Ears, nose, mouth and throat: Denies headache, Denies sore throat Cardiovascular: Denies chest pain, Denies shortness of breath Respiratory: Denies cough Gastrointestinal: Denies abdominal pain, Denies diarrhea, Denies nausea, Denies vomiting Genitourinary: Reports dysmenorrhea, Reports menorrhagia Menstruation: Reports period heavy Musculoskeletal: Denies myalgias Integumentary: Denies pruritus, Denies rash Neurological: Denies numbness, Denies weakness Psychiatric: Reports anxiety, Denies depression Past Medical History Past Medical History: Atrial Fibrillation, Hypertension Additional Past Medical History / Comment(s): Hx Palpitations. History of Any Multi-Drug Resistant Organisms: None Reported Past Surgical History: Breast Surgery (Breast biopsy L. breast-benign), Section Additional Past Surgical History / Comment(s): Cardiac cath-01/2019-neg Past Anesthesia/Blood Transfusion Reactions: Previous Problems w/ Anesthesia Additional Past Anesthesia/Blood Transfusion Reaction / Comment(s): Spinal went "up instead of down." Gets nausea with anxiety. Past Psychological History: Anxiety Smoking Status: Former smoker, Light tobacco smoker Past Alcohol Use History: Occasional Additional Past Alcohol Use History / Comment(s): Quit smoking in 2010, smoked 3-4 cigarettes a day, started in early . Past Drug Use History: None Reported - Past Family History Mother Family Medical History: Cancer Father Additional Family Medical History / Comment(s): at age 56 unknown cause. Medications and Allergies Home Medications Medication Instructions Recorded Confirmed Type ALPRAZolam [Xanax] 0.25 mg PO DAILY PRN 02/03/19 08/10/21 History Latanoprost Ophth [Xalatan 0.005%] 1 drop BOTH EYES HS 05/02/21 08/10/21 History Viorele 1 tab PO QAM 05/02/21 08/09/21 History amLODIPine [Norvasc] 5 mg PO BID #180 tab 05/03/21 08/09/21 Rx Escitalopram [Lexapro] 20 mg PO QAM 08/09/21 08/09/21 History Metoprolol Succinate (ER) [Toprol 100 mg PO QAM 08/09/21 08/09/21 History XL] Allergies Allergy/AdvReac Type Severity Reaction Status Date / Time soybean oil Allergy Heart Uncoded 08/09/21 08:17 Palpitations Exam Osteopathic Statement: *. No significant issues noted on an osteopathic structural exam other than those noted in the History and Physical/Consult. Intake and Output 08/09/21 08/09/21 08/09/21 06:59 14:59 22:59 Other: Weight 95.254 kg HEENT: within normal limits Heart: regular rate and rhythm Lungs: clear to auscultation bilaterally Abdomen: soft, non-tender Pelvic: uterus small, anteverted, non-tender Extremities: negative Heavenly's Assessment and Plan (1) Menorrhagia with regular cycle Current Visit: No Status: Acute Code(s): N92.0 - EXCESSIVE AND FREQUENT MENSTRUATION WITH REGULAR CYCLE SNOMED Code(s): 038610790 Plan: Proceed with dilatation and curettage with hysteroscopy and Novasure endometrial ablation. I have discussed the risks, benefits, and alternative therapies for the above- mentioned procedure and for both sedation/anesthesia as well as necessary blood products administration, if indicated, as they pertain to this patient. The patient has indicated her understanding and acceptance of the risks and procedures discussed.
[~2021-08-10 06:19] MED LIST changes: -ALPRAZolam 0.25 MG TAB PO PRN; -ALPRAZolam 0.5 MG TAB PO PRN; -ASPIRIN 325 MG TAB PO STA; -ATORVASTATIN 80 MG TAB PO STA; +DEXAMETHASONE SOD PHOSPHATE 4 MG/ML 1 ML VIAL IV ONE; +HYDROmorphone 0.5 MG/0.5 ML SYRINGE IVP PRN; +LACTATED RINGERS 1,000 ML IV SCH; -NITROGLYCERIN SL TABS 0.4 MG TAB SUBLINGUAL PRN; +ONDANSETRON 4 MG/2 ML VIAL IVP ONE; +Pre Op ABX Message 1 EACH MISC MISCELLANE ONE; -SODIUM CHLORIDE 0.9% 1,000 ML in EMPTY BAG 1 BAG IV ONE
[2021-08-10] MEDS ORDERED: LIDOCAINE 1% (10MG/ML) FOR IV START INTRADERMA ONE (07:19)
[2021-08-10] MEDS ORDERED: LIDOCAINE 2% INJ 20 MG/ML (2 ML VIAL) ONE (07:27)
[2021-08-10] MEDS ORDERED: KETOROLAC 15 MG/ML 1 ML VIAL ONE (07:27)
[2021-08-10] MEDS ORDERED: fentaNYL (PF) 50 MCG/ML 2 ML AMP ONE (07:27)
[2021-08-10] MEDS ORDERED: MIDAZOLAM 2 MG/2 ML VIAL ONE (07:27)
[2021-08-10] MEDS ORDERED: GLYCOPYRROLATE 0.2 MG/ML 2 ML VIAL ONE (07:27)
[2021-08-10] MEDS ORDERED: PROPOFOL 10 MG/ML 20 ML VIAL IV ONE (07:27)
--- NOTE | 2021-08-10 07:59 | P.OP ---
Date of Procedure: 08/10/21 Preoperative Diagnosis: Menorrhagia with regular cycle Postoperative Diagnosis: Same Procedure(s) Performed: Dilation and curettage with hysteroscopy and NovaSure endometrial ablation Anesthesia: other (Mask general) Surgeon: Sanjana Davidson Estimated Blood Loss (ml): 5 Pathology: other (Endometrial curettings) Condition: stable Disposition: same day Indications for Procedure: This is a 46 y.o. female, 1, para 1, who presents for dilatation and curettage with hysteroscopy and Novasure endometrial ablation due to menorrhagia with regular cycle. She was placed on Xarelto for atrial fibrillation and began bleeding extremely heavy. She is also on control pills which do help, but she would like to stop them due to her cardiac issues. Her has had a vasectomy. Menses are currently coming every 28 days and lasting 3-4 days on control pills, but on Xarelto, she was bleeding much heavier. Pelvic ultrasound showed uterus measuring 9.6 x 5.1 x 4.7 cm, possible 8 mm fibroid, endometrium 1.5cm, ovaries normal. Operative Findings: Uterus is mid to anteverted position, sounded to 10 cm. Cervix is sounded to 4 cm. Upon hysteroscopy, slightly irregular interior contours noted but very thin endometrium is noted. Both tubal ostia are visualized. No specific polyps or fibroids are visualized. No adnexal masses are palpated. Description of Procedure: The patient is taken to the operating room. She is placed in the dorsal lithotomy position after general anesthesia was given. She is prepped and draped in the normal sterile fashion. Bladder is drained with a catheter and then removed. Pelvic exam is performed under anesthesia. Uterus is found to be mid to anteverted position with no adnexal masses. She is placed in slight Trendelenburg position. A right angle retractor is used to visualize the cervix. The anterior lip of the cervix is grasped with a Allis clamp. Cervix is sounded to 4 cm. Uterus is sounded to 10 cm. Cervix is gently dilated with Benton dilators until a hysteroscope could be passed. Hysteroscopy is performed using normal saline. The above noted findings are noted. Next a polyp forceps is introduced. Minimal tissue was obtained. Next medium-sized size sharp curette was placed. Minimal amount of endometrial curettings were obtained. Next NovaSure array was inserted into the endometrial cavity. Length was set at 6 cm and width was determined to be 2.5 cm. Next cavity assessment was completed and passed on the first try. Next NovaSure array was fired at 83 W for 73 seconds. Next the array was removed, inspected and then discarded. Next the hysteroscope was reinserted. Uniform charring was noted. Pictures were taken. Hysteroscope was removed. Allis clamp was removed from the anterior lip of the cervix. Minimal bleeding was noted. All other instruments removed from the vagina. Sponge counts were correct. Patient is taken to recovery room in stable condition.
[2021-08-10 08:25] VITALS: RESP 16; TEMP 99
[2021-08-10 09:23] VITALS: BP 136/76; PULSE 77
== END 2021-08-10 09:51 | disposition home or self-care (01) ==
LOC: OR 06:19
PROVIDERS: ATTEND Obstetrics & Gynecology
DX: N92.0 Excessive and frequent menstruation with regular cycle (principal); N94.6 Dysmenorrhea, unspecified; F41.9 Anxiety disorder, unspecified; I10 Essential (primary) hypertension; I48.0 Paroxysmal atrial fibrillation; Z87.891 Personal history of nicotine dependence; Z79.01 Long term (current) use of anticoagulants; Z79.3 Long term (current) use of hormonal contraceptives; Z79.899 Other long term (current) drug therapy; Z91.018 Allergy to other foods; Z98.890 Other specified postprocedural states; Z98.891 History of uterine scar from previous surgery; Z80.9 Family history of malignant neoplasm, unspecified
CPT/HCPCS: 81025; 88305; 58563; J2250; J1100; J2405; J3010; J1885; J2704; J1170; J2001

== ENCOUNTER → 2021-12-07 | Outpatient (CLI) | payer BC ==
--- NOTE | 2021-12-07 14:59 | US ---
EXAMINATION TYPE: US renal artery duplex complete DATE OF EXAM: 12/07/2021 COMPARISON: NONE CLINICAL HISTORY: 46-year-old female I70.1 ATHEROSCLEROSIS OF RENAL ARTERY. TECHNIQUE: Multiple sonographic images of the kidneys are obtained. Color Doppler spectral waveform a nalysis of the renal arteries. FINDINGS: MEASUREMENTS: RENAL SIZE: Rt Kidney: 11.4 x 5.0 x 4.7cm. No hydronephrosis. There is a tiny 1.1 cm centrally located cyst of th e right kidney. 1 cm echogenic focus right kidney likely nonobstructive calculus. Lt Kidney: 11.9 x 5.7 x 4.7cm they're no hydronephrosis. RESISTANCE INDEX Right: 0.70 Left: 0.68 RA/AO RATIO (< 3.5 ) Right: 1.2 Left: 1.7 RA VELOCITY ( < 180 cm/s) Right: 112.5cm/s Left: 155.6cm/s Scholastic Aptitude Test Grader notes: Technical limitations due to patient's body habitus, extensive overlying bowel con tent, and only a single acoustic window. Very limited views with limited measurements. Only a single renal artery measurement couldn't be obtained on the right. One segmental measured right kidney, upst roke appears normal. No evident parvus tardus waveform. Left shows no renal artery stenosis. Incidental moderate to severe hepatic steatosis given increased echogenicity. IMPRESSION: 1. Very limited assessment of the right renal artery. Only a small segment of the renal artery could be interrogated. No diminished resistive indices or parvus tardus waveform to clearly suggest the pre sence of an underlying renal artery stenosis on the right. Further CTA or contrast enhanced MRA evalu ation if clinically indicated. 2. No evidence for renal artery stenosis on the left. 3. Moderate to severe hepatic steatosis.
== END | disposition home or self-care (01) ==
LOC: RADUSWWP 08:53
PROVIDERS: ATTEND Internal Medicine Clinical Cardiac Electrophysiology
DX: I70.1 Atherosclerosis of renal artery (principal)
CPT/HCPCS: 93975

== ENCOUNTER → 2022-02-16 | Outpatient (CLI) | payer BC ==
--- NOTE | 2022-02-19 07:49 | MM ---
Reason for Exam: Screening (asymptomatic). Last mammogram was performed 1 year(s) and 1 month(s) ago. Patient History: Menarche at age 10. First Full-Term at age 36. Late child-bearing (after 30). Hormonal Contraceptives for 19 years from age 14 until age 33. 01/27/2014, Benign Core Biopsy on the left side. Mother had breast cancer. Risk Values: Nola 5 year model risk: 2.4%. NCI Lifetime model risk: 20.8%. Prior Study Comparison: 11/04/2018 Bilateral Screening Mammogram, [facility]. 01/18/2020 Bilateral Screening Mammogram, [facility]. 01/24/2021 Bilateral Screening Mammogram, [facility]. Tissue Density: The breast tissue is heterogeneously dense. This may lower the sensitivity of mammography. Findings: Analyzed By CAD. There is no suspicious group of microcalcifications or new suspicious mass in either breast. Overall Assessment: Benign, BI-RAD 2 Management: Screening Mammogram of both breasts in 1 year. A clinical breast exam by your physician is recommended on an annual basis and results should be correlated with mammographic findings. Electronically signed and approved by: Polo Wright M.D. Radiologis
== END | disposition home or self-care (01) ==
LOC: RADMAMWWP 13:49
PROVIDERS: ATTEND Obstetrics & Gynecology
DX: Z12.31 Encounter for screening mammogram for malignant neoplasm of breast (principal); Z80.3 Family history of malignant neoplasm of breast
CPT/HCPCS: 77063; 77067

== ENCOUNTER → 2023-03-04 | Outpatient (CLI) | payer BC ==
--- NOTE | 2023-03-05 11:47 | MM ---
Reason for Exam: Screening (asymptomatic). Last mammogram was performed 1 year(s) and 1 month(s) ago. Patient History: Menarche at age 10. First Full-Term at age 36. Late child-bearing (after 30). Hormonal Contraceptives for 19 years from age 14 until age 33. 01/27/2014, Benign Core Biopsy on the left side. Mother had breast cancer, age 42. Risk Values: Nola 5 year model risk: 2.4%. NCI Lifetime model risk: 20.4%. Prior Study Comparison: 01/18/2020 Bilateral Screening Mammogram, [facility]. 01/24/2021 Bilateral Screening Mammogram, [facility]. 02/16/2022 Bilateral MG 3D screening mammo w/cad, [facility]. Tissue Density: The breast tissue is heterogeneously dense. This may lower the sensitivity of mammography. Findings: Analyzed By CAD. There is no suspicious group of microcalcifications or new suspicious mass in either breast. Overall Assessment: Negative, BI-RAD 1 Management: Screening Mammogram of both breasts in 1 year. . Patient should continue monthly self-breast exams. A clinical breast exam by your physician is recommended on an annual basis. This exam should not preclude additional follow-up of suspicious palpable abnormalities. Note on Nola scores and lifetime risk: 1. A Nola score greater than 3% is considered moderate risk. If this is the case, consider specialist referral to assess eligibility for a risk reducing agent. 2. If overall lifetime risk for the development of breast cancer is 20% or higher, the patient may qualify for future screening with alternating mammogram and breast MRI. Electronically signed and approved by: Polo Wright M.D. Radiologis
== END | disposition home or self-care (01) ==
LOC: RADMAMWWP 09:11
PROVIDERS: ATTEND Obstetrics & Gynecology
DX: Z12.31 Encounter for screening mammogram for malignant neoplasm of breast (principal); Z80.3 Family history of malignant neoplasm of breast
CPT/HCPCS: 77063; 77067

== ENCOUNTER → 2023-05-30 | Outpatient (CLI) | payer BC ==
--- NOTE | 2023-05-30 11:23 | US ---
EXAMINATION TYPE: US venous doppler duplex LE LT DATE OF EXAM: 05/30/2023 10:23 AM COMPARISON: NONE CLINICAL INDICATION: Female, 47 years old with history of LLE; I80.9; left leg pain SIDE PERFORMED: left TECHNIQUE: The lower extremity deep venous system is examined utilizing real time linear array sonog evelin with graded compression, doppler sonography and color-flow sonography. VESSELS IMAGED: Common Femoral Vein Deep Femoral Vein Greater Saphenous Vein * Femoral Vein Popliteal Vein Small Saphenous Vein * Proximal Calf Veins Posterior tibial veins (* superficial vessels) Left Leg: No evidence of DVT. Moderate-sized complex fluid collection left popliteal fossa = 4.9 x 2.2 x 2.4cm IMPRESSION: 1. No evidence for DVT within the left lower extremity. 2. Moderate-sized, mildly complex Langston's cyst incidentally noted.
== END | disposition home or self-care (01) ==
LOC: RADUSWWP 09:55
PROVIDERS: ATTEND Orthopaedic Surgery
DX: I80.9 Phlebitis and thrombophlebitis of unspecified site (principal); S83.412D Sprain of medial collateral ligament of left knee, subsequent encounter; S83.512D Sprain of anterior cruciate ligament of left knee, subsequent encounter; S83.232D Complex tear of medial meniscus, current injury, left knee, subsequent encounter; S80.02XD Contusion of left knee, subsequent encounter; M25.562 Pain in left knee; Z48.89 Encounter for other specified surgical aftercare

== ENCOUNTER → 2024-03-10 | Outpatient (CLI) | payer BC ==
--- NOTE | 2024-03-16 10:48 | MM ---
Reason for Exam: Screening (asymptomatic). Last screening mammogram was performed 12 month(s) ago. Patient History: Menarche at age 10. First Full-Term at age 36. Late child-bearing (after 30). Hormonal Contraceptives for 19 years from age 14 until age 33. 01/27/2014, Benign Core Biopsy on the left side. Mother had breast cancer, age 42. Risk Values: Nola 5 year model risk: 2.3%. NCI Lifetime model risk: 20.1%. Prior Study Comparison: 01/24/2021 Bilateral Screening Mammogram, [facility]. 02/16/2022 Bilateral MG 3D screening mammo w/cad, [facility]. 03/04/2023 Bilateral MG 3D screening mammo w/cad, [facility]. Tissue Density: The breasts are heterogeneously dense, which may obscure small masses. Analyzed By CAD. Overall Assessment: Benign, BI-RAD 2 Management: Screening Mammogram of both breasts in 1 year. Electronically signed and approved by: Devin Yo DO
== END | disposition home or self-care (01) ==
LOC: RADMAMWWP 07:39
PROVIDERS: ATTEND Family Medicine
DX: Z12.31 Encounter for screening mammogram for malignant neoplasm of breast (principal); Z80.3 Family history of malignant neoplasm of breast; R92.333 Mammographic heterogeneous density, bilateral breasts
CPT/HCPCS: 77063; 77067

== ENCOUNTER 2024-05-03 19:16 | Observation (INO) | payer BC ==
--- NOTE | 2024-05-03 19:29 | ED ---
Arrhythmia/Palpitations HPI - General Chief Complaint: Arrhythmia/Palpitations Stated Complaint: Sent from clinic Time Seen by Provider: 05/03/24 19:25 Source: patient, RN notes reviewed, old records reviewed Mode of arrival: ambulatory Limitations: no limitations - History of Present Illness Initial Comments: This is a 48-year-old female to the ER for evaluation of elevated heart rate palpitations shortness of breath significant shortness of breath here in the ER patient recently seen by section leader screen printing wore a monitor with no acute findings MD Complaint: rapid heart beat, "heart racing", palpitations, irregular heart beat -: hour(s) Context: occurred during rest, occurred during exertion Arrhythmia History: other (No history) Associated Symptoms: chest pain, shortness of breath Treatments Prior to Arrival: other - Related Data Home Medications Medication Instructions Recorded Confirmed Metoprolol Succinate (ER) [Toprol 100 mg PO DAILY 08/09/21 05/03/24 XL] Valsartan 320 mg PO DAILY 05/03/24 05/03/24 Allergies Allergy/AdvReac Type Severity Reaction Status Date / Time soybean oil Allergy Heart Uncoded 05/03/24 19:22 Palpitations Review of Systems ROS Statement: Those systems with pertinent positive or pertinent negative responses have been documented in the HPI. ROS Other: All systems not noted in ROS Statement are negative. Past Medical History Past Medical History: No Reported History Additional Past Medical History / Comment(s): states hx of palpitations, has been wearing 30 day heart monitor History of Any Multi-Drug Resistant Organisms: None Reported Past Surgical History: Section Past Anesthesia/Blood Transfusion Reactions: Previous Problems w/ Anesthesia Additional Past Anesthesia/Blood Transfusion Reaction / Comment(s): spinal went "up instead of down" gets nausea with anxiety Past Psychological History: Anxiety Smoking Status: Never smoker Past Alcohol Use History: Daily Past Drug Use History: None Reported - Past Family History Mother Family Medical History: Cancer Father Additional Family Medical History / Comment(s): at age 56 unknown cause. General Exam Limitations: no limitations General appearance: alert, in no apparent distress Head exam: Present: atraumatic, normocephalic, normal inspection Eye exam: Present: normal appearance, PERRL, EOMI. Absent: scleral icterus, conjunctival injection, periorbital swelling ENT exam: Present: normal exam, mucous membranes moist Neck exam: Present: normal inspection. Absent: tenderness, meningismus, lymphadenopathy Respiratory exam: Present: normal lung sounds bilaterally. Absent: respiratory distress, wheezes, rales, rhonchi, stridor Cardiovascular Exam: Present: tachycardia, irregular rhythm, normal heart sounds. Absent: systolic murmur, diastolic murmur, rubs, gallop, clicks GI/Abdominal exam: Present: soft, normal bowel sounds. Absent: distended, tenderness, guarding, rebound, rigid Extremities exam: Present: normal inspection, full ROM, normal capillary refill. Absent: tenderness, pedal edema, joint swelling, calf tenderness Back exam: Present: normal inspection Neurological exam: Present: alert, oriented X3, CN II-XII intact Psychiatric exam: Present: normal affect, normal mood Skin exam: Present: warm, dry, intact, normal color. Absent: rash Course Vital Signs 05/03/24 05/03/24 05/03/24 19:18 20:11 21:00 Temperature 98.9 F Pulse Rate 120 H 130 H 96 Respiratory 18 18 18 Rate Blood Pressure 206/154 181/154 182/110 O2 Sat by Pulse 95 98 97 Oximetry 05/03/24 05/04/24 05/04/24 22:00 00:43 03:36 Temperature Pulse Rate 87 74 69 Respiratory 19 19 18 Rate Blood Pressure 171/94 165/85 161/79 O2 Sat by Pulse 99 98 97 Oximetry 05/04/24 05/04/24 05/04/24 06:06 09:18 13:25 Temperature Pulse Rate 67 71 60 Respiratory 16 18 18 Rate Blood Pressure 152/78 177/92 160/83 O2 Sat by Pulse 97 98 98 Oximetry 05/04/24 16:10 Temperature 98.4 F Pulse Rate 65 Respiratory 18 Rate Blood Pressure 206/103 O2 Sat by Pulse 99 Oximetry - Reevaluation(s) Reevaluation #1: 05/03/24 20:41 Medical records reviewed Reevaluation #2: 05/03/24 20:41 Patient symptoms improving Reevaluation #3: 05/03/24 20:41 Patient informed of results questions answered Reevaluation #4: Was pt. sent in by a medical professional or institution (, PA, VENEER GRADER, urgent c are, hospital, or [facility]...) When possible be specific @ -no Did you speak to anyone other than the patient for history (EMS, parent, family, police, friend...)? What history was obtained from this source @ -no Did you review nursing and triage notes (agree or disagree)? Why? @ -agree Are old charts reviewed (outside hosp., previous admission, EMS record, old EKG, old radiological studies, urgent care reports/EKG's, [facility] records)? Report findings @ -yes Differential Diagnosis (chest pain, altered mental status, abdominal pain women, abdominal pain men, vaginal bleeding, weakness, fever, dyspnea, syncope, headache, dizziness, GI bleed, back pain, seizure, CVA, palpatations, mental health, musculoskeletal)? @ -prior EKG interpreted by me (3pts min.). @ -yes X-rays interpreted by me (1pt min.). @ -yes negative for acute disease CT interpreted by me (1pt min.). @ -no U/S interpreted by me (1pt. min.). @ -no What testing was considered but not performed or refused? (CT, X-rays, U/S, labs)? Why? @ -none What meds were considered but not given or refused? Why? @ -none Did you discuss the management of the patient with other professionals (professionals i.e. , PA, VENEER GRADER, lab, RT, psych nurse, social work program coordinator, thread drawer, teacher, plain clothes police officer, case hardener)? Give summary @ -no Was smoking cessation discussed for >3mins.? @ -no Was critical care preformed (if so, how long)? @ -no Were there social determinants of health that impacted care today? How? (Home lessness, low income, unemployed, alcoholism, drug addiction, transportation, low edu. Level, literacy, decrease access to med. care, [facility], rehab)? @ -none Was there de-escalation of care discussed even if they declined (Discuss DNR or withdrawal of care, Hospice)? DNR status @ -no What co-morbidities impacted this encounter? (DM, HTN, Smoking, COPD, CAD, Cancer, CVA, ARF, Chemo, Hep., AIDS, mental health diagnosis, sleep apnea, morbid obesity)? @ -none Was patient admitted / discharged? Hospital course, mention meds given and route, prescriptions, significant lab abnormalities, going to OR and other pertinent info. @ - 48 female to ER for evaluation of atrial fibrillation with RVR palpi tations. Patient admitted for cardiac evaluation Admitted Undiagnosed new problem with uncertain prognosis? @ -no Drug Therapy requiring intensive monitoring for toxicity (Heparin, Nitro, Insulin, Cardizem)? @ -no Were any procedures done? @ -no Diagnosis/symptom? @ -A-fib with RVR Acute, or Chronic, or Acute on Chronic? @ -Acute Uncomplicated (without systemic symptoms) or Complicated (systemic symptoms)? @ -Complicated Side effects of treatment? @ -no Exacerbation, Progression, or Severe Exacerbation? @ -exacerbation Poses a threat to life or bodily function? How? (Chest pain, USA, PA, pneumonia, PE, COPD, DKA, ARF, appy, cholecystitis, CVA, Diverticulitis, Homicidal, Suicidal, threat to staff... and all critical care pts) @ -yes arrhythmia Reevaluation #5: Differential Palpitations Ventricular arrhythmias, atrial arrhythmias, myocardial infarction, anemia, thyrotoxicosis, electrolyte imbalance, hypokalemia, pulmonary embolism, pulmonary disease, drugs, alcohol, anxiety, stress.... This is not meant to be an all-inclusive list. - Consultations Consultation #1: Spoke with [facility] who agrees to admit this patient EKG Findings - EKG Comments: EKG Findings:: EKG is A-fib 147 QRS 84 QTc 352 - EKG Results: EKG: interpreted by DANY Medical Decision Making - Medical Decision Making 48 female to ER for evaluation of atrial fibrillation with RVR palpitations. Patient admitted for cardiac evaluation - Lab Data Result diagrams: 05/04/24 12:09 05/04/24 12:09 Lab Results 05/03/24 05/03/24 05/03/24 Range/Units 19:33 19:33 19:33 WBC 17.1 H (3.8-10.6) k/uL RBC 4.61 (3.80-5.40) m/uL Hgb 15.2 (11.4-16.0) gm/dL Hct 46.0 (34.0-46.0) % MCV 99.8 (80.0-100.0) fL MCH 33.0 (25.0-35.0) pg MCHC 33.0 (31.0-37.0) g/dL RDW 12.7 (11.5-15.5) % Plt Count 294 (150-450) k/uL MPV 8.0 Neutrophils % 81 % Lymphocytes % 12 % Monocytes % 4 % Eosinophils % 1 % Basophils % 0 % Neutrophils # 13.9 H (1.3-7.7) k/uL Lymphocytes # 2.1 (1.0-4.8) k/uL Monocytes # 0.8 (0-1.0) k/uL Eosinophils # 0.2 (0-0.7) k/uL Basophils # 0.0 (0-0.2) k/uL PT 10.4 (10.0-12.5) sec INR 0.9 (<1.2) APTT 23.8 (22.0-30.0) sec Sodium 138 (137-145) mmol/L Potassium 4.7 (3.5-5.1) mmol/L Chloride 101 (98-107) mmol/L Carbon Dioxide 27 (22-30) mmol/L Anion Gap 10 mmol/L BUN 16 (7-17) mg/dL Creatinine 0.57 (0.52-1.04) mg/dL Est GFR (CKD-EPI)AfAm >90 (>60 ml/min/1.73 sqM) Est GFR (CKD-EPI)NonAf >90 (>60 ml/min/1.73 sqM) Glucose 114 H (74-99) mg/dL Calcium 10.1 (8.4-10.2) mg/dL Magnesium 1.7 (1.6-2.3) mg/dL Total Bilirubin 0.7 (0.2-1.3) mg/dL AST 44 H (14-36) U/L ALT 29 (4-34) U/L Alkaline Phosphatase 139 H (38-126) U/L Troponin I (0.000-0.034) ng/mL Total Protein 8.2 (6.3-8.2) g/dL Albumin 4.8 (3.5-5.0) g/dL TSH 4.910 H (0.465-4.680) mIU/L 05/03/24 Range/Units 19:33 WBC (3.8-10.6) k/uL RBC (3.80-5.40) m/uL Hgb (11.4-16.0) gm/dL Hct (34.0-46.0) % MCV (80.0-100.0) fL MCH (25.0-35.0) pg MCHC (31.0-37.0) g/dL RDW (11.5-15.5) % Plt Count (150-450) k/uL MPV Neutrophils % % Lymphocytes % % Monocytes % % Eosinophils % % Basophils % % Neutrophils # (1.3-7.7) k/uL Lymphocytes # (1.0-4.8) k/uL Monocytes # (0-1.0) k/uL Eosinophils # (0-0.7) k/uL Basophils # (0-0.2) k/uL PT (10.0-12.5) sec INR (<1.2) APTT (22.0-30.0) sec Sodium (137-145) mmol/L Potassium (3.5-5.1) mmol/L Chloride (98-107) mmol/L Carbon Dioxide (22-30) mmol/L Anion Gap mmol/L BUN (7-17) mg/dL Creatinine (0.52-1.04) mg/dL Est GFR (CKD-EPI)AfAm (>60 ml/min/1.73 sqM) Est GFR (CKD-EPI)NonAf (>60 ml/min/1.73 sqM) Glucose (74-99) mg/dL Calcium (8.4-10.2) mg/dL Magnesium (1.6-2.3) mg/dL Total Bilirubin (0.2-1.3) mg/dL AST (14-36) U/L ALT (4-34) U/L Alkaline Phosphatase (38-126) U/L Troponin I <0.012 (0.000-0.034) ng/mL Total Protein (6.3-8.2) g/dL Albumin (3.5-5.0) g/dL TSH (0.465-4.680) mIU/L - EKG Data -: EKG Interpreted by Me Critical Care Time Critical Care Time: Yes Total Critical Care Time: 31 Disposition Clinical Impression: Atrial fibrillation, Tachycardia, Palpitations, Atrial fibrillation with RVR Disposition: HOME SELF-CARE Is patient prescribed a controlled substance at d/c from ED?: No Time of Disposition: 20:40
[2024-05-03] MEDS: SODIUM CHLORIDE 0.9% 1,000 ML IV STA (19:51)
[2024-05-03 20:08] LABS: Basophils % (A) 0 %; Eosinophils # (A) 0.2 k/uL (0-0.7); Eosinophils % (A) 1 %; HGB 15.2 gm/dL (11.4-16.0); Lymphocytes # (A) 2.1 k/uL (1.0-4.8); Lymphocytes % (A) 12 %; MCV 99.8 fL (80.0-100.0); Monocytes # (A) 0.8 k/uL (0-1.0); Monocytes % (A) 4 %; Neutrophils # (A) 13.9 k/uL (1.3-7.7); Neutrophils % (A) 81 %; Platelet Count 294 k/uL (150-450); RBC 4.61 m/uL (3.80-5.40); RDW 12.7 % (11.5-15.5); WBC 17.1 k/uL (3.8-10.6)
[2024-05-03] MEDS: METOPROLOL TARTRATE 5 MG/5 ML VIAL IVP STA (20:15)
[2024-05-03] MEDS: DILTIAZEM 5 MG/ML 5 ML VIAL IVP STA (20:16)
[2024-05-03 20:17] LABS: INR 0.9 (<1.2); Partial Thromboplastin Time 23.8 sec (22.0-30.0); Prothrombin Time 10.4 sec (10.0-12.5)
[2024-05-03 20:30] LABS: ALT 29 U/L (4-34); AST 44 U/L (14-36); African American GFR (CKD) >90 (>60 ml/min/1.73 sqM); Albumin 4.8 g/dL (3.5-5.0); Alkaline Phosphatase 139 U/L (38-126); Anion Gap 10 mmol/L; Blood Urea Nitrogen 16 mg/dL (7-17); Calcium 10.1 mg/dL (8.4-10.2); Carbon Dioxide 27 mmol/L (22-30); Chloride 101 mmol/L (98-107); Glucose 114 mg/dL (74-99); Magnesium 1.7 mg/dL (1.6-2.3); Non-African American GFR(CKD) >90 (>60 ml/min/1.73 sqM); Potassium 4.7 mmol/L (3.5-5.1); Sodium 138 mmol/L (137-145); Total Bilirubin 0.7 mg/dL (0.2-1.3); Total Protein 8.2 g/dL (6.3-8.2)
[2024-05-03] MEDS ORDERED: ONDANSETRON 4 MG/2 ML VIAL IVP PRN (20:50)
[2024-05-03] MEDS ORDERED: MORPHINE SULFATE 4 MG/ML SYRINGE IV PRN (20:50)
[2024-05-03] MEDS ORDERED: NALOXONE 0.4 MG/ML 1 ML VIAL IV PRN (20:50)
[2024-05-03] MEDS: HEPARIN SODIUM 1,000 UN/ML (10ML VL) IV ONE (20:59)
[2024-05-03] MEDS: HEPARIN SOD,PORK IN 0.45% NACL 25,000 UNIT in 0.45% NACL 1 250ML.BAG IV SCH (21:00)
[2024-05-03] MEDS: DILTIAZEM 125 MG in SODIUM CHLORIDE 0.9% 100 ML IV SCH (21:02)
[2024-05-03] MEDS: MAGNESIUM SULFATE-D5W PMX 1 GM in DEXTROSE/WATER 1 100ML.BAG IVPB ONE (21:03)
[2024-05-03] MEDS: DILTIAZEM DRIP BOLUS FROM BAG 1 MG SOLN IV ONE (21:04)
[2024-05-03] MEDS: SODIUM CHLORIDE 0.9% 1,000 ML IV SCH (21:18)
[2024-05-04] MEDS: HEPARIN SODIUM 1,000 UN/ML (10ML VL) IV PRN (04:25)
[2024-05-04] MEDS: METOPROLOL SUCCINATE (ER) 100 MG TAB.ER.24H PO SCH (09:16)
[2024-05-04] MEDS: VALSARTAN 160 MG TAB PO SCH (09:17)
[2024-05-04] MEDS: APIXABAN 5 MG TAB PO SCH (09:17)
[2024-05-04 09:19] VITALS: RESP 18
--- NOTE | 2024-05-04 09:40 | P.CRDCN ---
History of Present Illness History of present illness: HISTORY OF PRESENT ILLNESS: This is a 48-year-old female with a past medical history significant for obesity, hypertension, paroxysmal atrial fibrillation, and SVT. Patient follows in the office with Dr. Rizzo. We have been asked to see the patient in consultation for A-fib. Patient examined at the bedside in the emergency room. Patient states that she was at her daughter's volleyball game when she began to have palpitations. She states the palpitations lasted for about an hour so she decided to go to urgent care. She was found to be in A-fib with RVR and she was directed to come to the emergency room. The patient was started on IV heparin and IV Cardizem. She is subsequently converted to sinus mechanism and is maintaining sinus mechanism this morning. Patient denies any chest pain or pressure. Denies any shortness of breath. DIAGNOSTICS: - EKG reveals atrial fibrillation with RVR. Repeat EKG reveals sinus mechanism. - Laboratory data: WBC 17.1. Hemoglobin 15.2. Platelet count 294. Sodium 138. Potassium 4.7. BUN 16. Creatinine 0.57. Magnesium 1.7. Troponin negative x 3. TSH 4.910. - Current home cardiac medications include valsartan 320 mg daily and metoprolol succinate 100 mg daily. - Most recent echocardiogram obtained in May 2021 revealed ejection fraction 55%, mild MR, mild TR, mild pulmonary hypertension - Patient underwent Antonio stress testing in July 2021 which was negative for ischemia - Patient underwent cardiac catheterization in January 2019 which was negative for ischemia REVIEW OF SYSTEMS: At the time of my exam: CONSTITUTIONAL: Denies fever or chills. HEENT: Denies blurred vision, vision changes, or eye pain. Denies hemoptysis CARDIOVASCULAR: Denies chest pain. Denies orthopnea. Denies PND. Denies palpitations RESPIRATORY: Denies shortness of breath. GASTROINTESTINAL: Denies abdominal pain. Denies nausea or vomiting. HEMATOLOGIC: Denies bleeding disorders. GENITOURINARY: Denies any blood in urine. SKIN: Denies pruitis. Denies rash. PHYSICAL EXAM: VITAL SIGNS: Reviewed. GENERAL: Well-developed in no acute distress. HEENT: Head is normocephalic. Pupils are equal, round. Sclerae anicteric. Mucous membranes of the mouth are moist. Neck supple. No JVD or thyromegaly LUNGS: Respirations even and unlabored. Lungs essentially clear to auscultation bilaterally. HEART: Regular rate and rhythm. S1 and S2 heard. ABDOMEN: Soft. Nondistended. Nontender. EXTREMITIES: Normal range of motion. No clubbing or cyanosis. Peripheral pulses intact. No lower extremity edema NEUROLOGIC: Awake and alert. Oriented x 3. ASSESSMENT: Palpitations Paroxysmal atrial fibrillation with RVR, currently maintaining sinus mechanism Hypertension History of SVT Obesity: BMI 33.2 PLAN: Obtain 2D echo to assess cardiac structure and function Discontinue IV heparin. Begin Eliquis 5 mg twice a day Discontinue IV Cardizem Resume home dose of metoprolol succinate and valsartan If 2D echo is unremarkable, will add flecainide Further recommendations pending patient course Nurse practitioner note has been reviewed by physician. Signing provider agrees with the documented findings, assessment, and plan of care documented by SUPPORT ASSOCIATE as a scribe. Past Medical History Past Medical History: No Reported History Additional Past Medical History / Comment(s): states hx of palpitations, has been wearing 30 day heart monitor History of Any Multi-Drug Resistant Organisms: None Reported Past Surgical History: Section Past Anesthesia/Blood Transfusion Reactions: Previous Problems w/ Anesthesia Additional Past Anesthesia/Blood Transfusion Reaction / Comment(s): spinal went "up instead of down" gets nausea with anxiety Past Psychological History: Anxiety Smoking Status: Never smoker Past Alcohol Use History: Daily Past Drug Use History: None Reported - Past Family History Mother Family Medical History: Cancer Father Additional Family Medical History / Comment(s): at age 56 unknown cause. Medications and Allergies Home Medications Medication Instructions Recorded Confirmed Type Metoprolol Succinate (ER) [Toprol 100 mg PO DAILY 08/09/21 05/03/24 History XL] Valsartan 320 mg PO DAILY 05/03/24 05/03/24 History Allergies Allergy/AdvReac Type Severity Reaction Status Date / Time soybean oil Allergy Heart Uncoded 05/03/24 19:22 Palpitations Physical Exam Vitals: Vital Signs Temp Pulse Resp BP Pulse Ox 05/04/24 06:06 67 16 152/78 97 05/04/24 03:36 69 18 161/79 97 05/04/24 00:43 74 19 165/85 98 05/03/24 22:00 87 19 171/94 99 05/03/24 21:00 96 18 182/110 97 05/03/24 20:11 130 H 18 181/154 98 05/03/24 19:18 98.9 F 120 H 18 206/154 95 Intake and Output 05/03/24 05/04/24 05/04/24 22:59 06:59 14:59 Intake Total 73.5 Balance 73.5 Intake: Intake, IV Titration 73.5 Amount Heparin Sod,Pork in 0.45% 73.5 NaCl 25,000 unit In 0.45 % NaCl 1 250ml.bag @ 10. 3991 UNITS/KG/HR 10 mls/ hr IV .[facility]H [facility] Rx#: [id number] Other: Weight 96.162 kg Results 05/03/24 19:33 05/03/24 19:33 Cardiac Enzymes 05/03/24 05/03/24 05/03/24 Range/Units 19:33 19:33 23:08 AST 44 H (14-36) U/L Troponin I <0.012 <0.012 (0.000-0.034) ng/mL 05/04/24 Range/Units 01:37 AST (14-36) U/L Troponin I <0.012 (0.000-0.034) ng/mL Coagulation 05/03/24 05/04/24 Range/Units 19:33 03:24 PT 10.4 (10.0-12.5) sec APTT 23.8 30.4 H (22.0-30.0) sec CBC 05/03/24 Range/Units 19:33 WBC 17.1 H (3.8-10.6) k/uL RBC 4.61 (3.80-5.40) m/uL Hgb 15.2 (11.4-16.0) gm/dL Hct 46.0 (34.0-46.0) % Plt Count 294 (150-450) k/uL Comprehensive Metabolic Panel 05/03/24 Range/Units 19:33 Sodium 138 (137-145) mmol/L Potassium 4.7 (3.5-5.1) mmol/L Chloride 101 (98-107) mmol/L Carbon Dioxide 27 (22-30) mmol/L BUN 16 (7-17) mg/dL Creatinine 0.57 (0.52-1.04) mg/dL Glucose 114 H (74-99) mg/dL Calcium 10.1 (8.4-10.2) mg/dL AST 44 H (14-36) U/L ALT 29 (4-34) U/L Alkaline Phosphatase 139 H (38-126) U/L Total Protein 8.2 (6.3-8.2) g/dL Albumin 4.8 (3.5-5.0) g/dL Current Medications Generic Name Dose Route Start Last Admin Trade Name Freq PRN Reason Stop Dose Admin Heparin Sodium (Porcine) 0 unit 05/03/24 20:15 05/04/24 04:25 Heparin Sodium 1,000 Un/Ml (10ml Vl) IV 4,000 unit PER PROTOCOL PRN Administration Low PTT Protocol Diltiazem HCl 125 mg/ Sodium 125 mls @ 5 mls/hr 05/03/24 20:15 05/03/24 21:02 Chloride IV 5 mg/hr .Q24H WENCESLAO 5 mls/hr Administration 5 MG/HR Heparin Sodium/Sodium Chloride 250 mls @ 10 mls/hr 05/03/24 20:15 05/04/24 04:21 25,000 unit/ Sodium Chloride IV 13.39 units/kg/hr .Q24H WENCESLAO 12.876 mls/hr Titration Protocol 10.3991 UNITS/KG/HR Sodium Chloride 1,000 mls @ 75 mls/hr 05/03/24 21:00 05/03/24 21:18 Saline 0.9% IV 75 mls/hr .[id number] WENCESLAO Administration Morphine Sulfate 4 mg 05/03/24 20:50 Morphine Sulfate 4 Mg/Ml Syringe IV Q4HR PRN Severe Pain (Scale 7 to 10) Naloxone HCl 0.2 mg 05/03/24 20:50 Naloxone 0.4 Mg/Ml 1 Ml Vial IV Q2M PRN Opioid Reversal Ondansetron HCl 4 mg 05/03/24 20:50 Ondansetron 4 Mg/2 Ml Vial IVP Q8HR PRN Nausea And Vomiting Intake and Output 05/03/24 05/04/24 05/04/24 22:59 06:59 14:59 Intake Total 73.5 Balance 73.5 Intake: Intake, IV Titration 73.5 Amount Heparin Sod,Pork in 0.45% 73.5 NaCl 25,000 unit In 0.45 % NaCl 1 250ml.bag @ 10. 3991 UNITS/KG/HR 10 mls/ hr IV .[facility]H [facility] Rx#: [id number] Other: Weight 96.162 kg 05/03/24 19:33 05/03/24 19:33
[2024-05-04 12:24] LABS: Basophils % (A) 0 %; Eosinophils # (A) 0.1 k/uL (0-0.7); Eosinophils % (A) 1 %; HGB 13.4 gm/dL (11.4-16.0); Lymphocytes # (A) 1.7 k/uL (1.0-4.8); Lymphocytes % (A) 18 %; MCH 32.5 pg (25.0-35.0); MCHC 32.6 g/dL (31.0-37.0); MCV 99.8 fL (80.0-100.0); Mean Platelet Volume 7.3; Monocytes # (A) 0.4 k/uL (0-1.0); Monocytes % (A) 5 %; Neutrophils # (A) 6.8 k/uL (1.3-7.7); Neutrophils % (A) 75 %; Platelet Count 238 k/uL (150-450); RBC 4.11 m/uL (3.80-5.40); RDW 12.1 % (11.5-15.5); WBC 9.2 k/uL (3.8-10.6)
--- NOTE | 2024-05-04 12:35 | P.HPIM ---
History of Present Illness H&P Date: 05/04/24 Chief Complaint: Palpitations Patient is a 48-year-old female with past medical history of atrial fibrillation anticoagulated with Eliquis, hypertension, anxiety, and daily alcohol use who presented to the ED last night with chief complaint of palpitations. Patient does endorse a history of A-fib and follows up with Dr. Rizzo, denies any history of ablations. She states generally her A-fib is rate controlled on her current regimen. She states that the palpitations came on yesterday suddenly and lasted about 2.5 hours. Patient endorses drinking a few glasses of wine daily. She denies any caffeine use or thyroid disorder. She denied any chest pain, shortness of breath, nausea, vomiting, diarrhea, chills, dizziness or lightheadedness. Vitals on admission Temperature 98.9, pulse 120 bpm, respiratory rate 18, blood pressure 206/154, O2 saturation 95% on room air EKG independently interpreted as A-fib with RVR, rate of 147 bpm and QTc of 352 ms Labs on admission show WBC 17.1, hemoglobin 15.2, MCV 99.8, platelets 294. PT 10.4, INR 0.9, PT 23.8. Sodium 138, potassium 4.7, chloride 107, bicarb 27, BUN 16, creatinine 0.57, glucose 114. Calcium 10.1, magnesium 1.7. AST 44, ALT 29, ALP 139. Troponin x 3 negative. TSH 4.910. Review of systems: Pertinent positives and negatives as discussed in HPI, a complete review of systems was performed and all other systems are negative. Allergies: NKDA PCP:[facility] in [facility] office Social history: Tobacco: none Alcohol: couple glasses of wine a night Recreational drugs: none Travel: [place] couple weeks ago Sick contacts: none Physical examination: Vital signs reviewed General: nontoxic, no distress, appears at stated age, Derm: warm, dry, intact Head: atraumatic, normocephalic, symmetric Eyes: anicteric sclera Mouth: no lip lesion, mucus membranes moist Cardiovascular: S1 S2 reg, no murmur Lungs: CTA bilateral, no rhonchi, no rales, no accessory muscle use Abdominal: soft, non-tender to palpation, nondistended Extremities: No cyanosis, clubbing, or pedal edema. Neuro: Alert, Oriented to person, time and place, Gross neurological examination did not reveal any focal deficits. Cranial nerves II to XII grossly intact. Bilateral upper and lower extremity muscle strength intact and sensation intact. Psych: well appearing, appropriate affect Assessment/Plan: Patient is a 48-year-old female with past medical history of A-fib on Eliquis, hypertension, anxiety and daily alcohol use who presented to the ED last night with chief complaint of palpitations. Patient will be admitted to internal medicine service for further evaluation. Active: A-fib with RVR, currently normal sinus Patient was on Cardizem drip and IV heparin which were recently discontinued Continue metoprolol 100 mg daily Continue Eliquis 5 mg twice daily Follow-up echocardiogram Cardiac monitoring Consult cardiology Leukocytosis, possibly reactive to above Follow up UA Follow up CXR Mild transaminitis, likely secondary to daily alcohol use AST 44, ALT 29, ALP 139 Continue to monitor Encourage alcohol cessation New onset hypothyroidism vs. Euthyroid sick syndrome Follow up Free T4 Chronic: Hypertension Continue valsartan 320 mg daily F: 0.9% NS at 75 mL/h E: Replete as needed N: Regular A: As tolerated DVT prophylaxis: Eliquis 5 mg twice daily for A-fib CODE STATUS: Full code Discussed with: Patient Anticipated discharge place: Home Past Medical History Past Medical History: No Reported History Additional Past Medical History / Comment(s): states hx of palpitations, has been wearing 30 day heart monitor History of Any Multi-Drug Resistant Organisms: None Reported Past Surgical History: Section Past Anesthesia/Blood Transfusion Reactions: Previous Problems w/ Anesthesia Additional Past Anesthesia/Blood Transfusion Reaction / Comment(s): spinal went "up instead of down" gets nausea with anxiety Past Psychological History: Anxiety Smoking Status: Never smoker Past Alcohol Use History: Daily Past Drug Use History: None Reported - Past Family History Mother Family Medical History: Cancer Father Additional Family Medical History / Comment(s): at age 56 unknown cause. Medications and Allergies Home Medications Medication Instructions Recorded Confirmed Type Metoprolol Succinate (ER) [Toprol 100 mg PO DAILY 08/09/21 05/03/24 History XL] Valsartan 320 mg PO DAILY 05/03/24 05/03/24 History Allergies Allergy/AdvReac Type Severity Reaction Status Date / Time soybean oil Allergy Heart Uncoded 05/03/24 19:22 Palpitations Physical Exam Vitals: Vital Signs Temp Pulse Resp BP Pulse Ox 05/04/24 06:06 67 16 152/78 97 05/04/24 03:36 69 18 161/79 97 05/04/24 00:43 74 19 165/85 98 05/03/24 22:00 87 19 171/94 99 05/03/24 21:00 96 18 182/110 97 05/03/24 20:11 130 H 18 181/154 98 05/03/24 19:18 98.9 F 120 H 18 206/154 95 Intake and Output 05/03/24 05/04/24 05/04/24 22:59 06:59 14:59 Intake Total 73.5 Balance 73.5 Intake: Intake, IV Titration 73.5 Amount Heparin Sod,Pork in 0.45% 73.5 NaCl 25,000 unit In 0.45 % NaCl 1 250ml.bag @ 10. 3991 UNITS/KG/HR 10 mls/ hr IV .Q24H [facility] Rx#: [id number] Other: Weight 96.162 kg Results CBC & Chem 7: 05/04/24 12:09 05/03/24 19:33 Labs: Abnormal Lab Results - Last 24 Hours (Table) 05/03/24 05/03/24 05/04/24 Range/Units 19:33 19:33 03:24 WBC 17.1 H (3.8-10.6) k/uL Neutrophils # 13.9 H (1.3-7.7) k/uL APTT 30.4 H (22.0-30.0) sec Glucose 114 H (74-99) mg/dL AST 44 H (14-36) U/L Alkaline Phosphatase 139 H (38-126) U/L TSH 4.910 H (0.465-4.680) mIU/L
[2024-05-04 13:21] LABS: ALT 24 U/L (4-34); AST 29 U/L (14-36); African American GFR (CKD) >90 (>60 ml/min/1.73 sqM); Albumin 4.1 g/dL (3.5-5.0); Alkaline Phosphatase 126 U/L (38-126); Anion Gap 11 mmol/L; Blood Urea Nitrogen 9 mg/dL (7-17); Calcium 9.2 mg/dL (8.4-10.2); Carbon Dioxide 23 mmol/L (22-30); Chloride 102 mmol/L (98-107); Glucose 106 mg/dL (74-99); Non-African American GFR(CKD) >90 (>60 ml/min/1.73 sqM); Potassium 4.2 mmol/L (3.5-5.1); Sodium 136 mmol/L (137-145); Total Protein 7.1 g/dL (6.3-8.2)
[2024-05-04 16:11] VITALS: BP 206/103; PULSE 65; TEMP 98.4
--- NOTE | 2024-05-04 17:36 | CA ---
Transthoracic Echo Report Name: Silvia Jean Age: 48 Gender: F : 1975 Exam Date: 05/04/2024 10:45 Exam Location: [facility] Ht (in): 67 Wt (lb): 212 Ordering Physician: Hitesh Pepe DO Attending/Referring Phys: [id number], My Casting Wheel Operator Caitlyn Hernadez RDCS Procedure CPT: Indications: afib Cardiac Hx: Technical Quality: Good Contrast 1: Total Dose (mL): Contrast 2: Total Dose (mL): MEASUREMENTS (Male / Female) Normal Values 2D ECHO LV Diastolic Diameter PLAX 5.0 cm 4.2 - 5.9 / 3.9 - 5.3 cm LV Systolic Diameter PLAX 2.9 cm IVS Diastolic Thickness 1.2 cm 0.6 - 1.0 / 0.6 - 0.9 cm LVPW Diastolic Thickness 1.1 cm 0.6 - 1.0 / 0.6 - 0.9 cm LV Relative Wall Thickness 0.5 RV Internal Dim ED PLAX 3.3 cm LA Systolic Diameter LX 3.9 cm 3.0 - 4.0 / 2.7 - 3.8 cm LV Diastolic Volume MOD 4C 113.1 cm??? LV Systolic Volume MOD 4C 51.2 cm??? LV Ejection Fraction MOD 4C 54.8 % LV Cardiac Index MOD 4C 1915.9 cm???/min???m??? LV Diastolic Length 4C 8.6 cm LV Systolic Length 4C 6.9 cm LV Diastolic Volume MOD 2C 70.7 cm??? LV Systolic Volume MOD 2C 16.4 cm??? LV Ejection Fraction MOD 2C 76.8 % LV Cardiac Index MOD 2C 1679.5 cm???/min???m??? LV Diastolic Length 2C 8.4 cm LV Systolic Length 2C 6.9 cm LA Volume 68.3 cm??? 18 - 58 / 22 - 52 cm??? LA Volume Index 31.5 cm???/m??? 16 - 28 cm???/m??? M-MODE Aortic Root Diameter MM 2.8 cm AV Cusp Separation MM 2.2 cm DOPPLER AV Peak Velocity 176.1 cm/s AV Peak Gradient 12.4 mmHg MV Area PHT 2.7 cm??? Mitral E Point Velocity 89.6 cm/s Mitral A Point Velocity 109.5 cm/s Mitral E to A Ratio 0.8 MV Deceleration Time 285.8 ms TR Peak Velocity 238.0 cm/s TR Peak Gradient 22.7 mmHg Right Ventricular Systolic Press 27.4 mmHg FINDINGS Left Ventricle Left ventricular ejection fraction is estimated at 55-60 %. Left ventricular cavity size normal. Mildly increased septal wall thickness. Mildly increased posterior wall thickness. Right Ventricle Right ventricular dilatation. Right ventricular systolic pressure within normal limits. Right Atrium Normal right atrial size. No right atrial thrombus or mass seen. Left Atrium Mildly increased left atrial diameter. Mildly increased left atrial volume. Mildly increased left atrial area. No left atrial thrombus or mass present. Mitral Valve Structurally normal mitral valve. No mitral stenosis, regurgitation or prolapse. Aortic Valve Trileaflet aortic valve. No aortic valve stenosis or regurgitation. Tricuspid Valve Structurally normal tricuspid valve. Mild tricuspid regurgitation. Pulmonic Valve Structurally normal pulmonic valve. Trace pulmonic regurgitation. Pericardium No pericardial effusion. Aorta Normal size aortic root and proximal ascending aorta. CONCLUSIONS Normal LV function Previewed by: Dr. David Ratliff MD (Electronically Signed) Final Date: 04 May 2024 17:35
--- NOTE | 2024-05-05 17:12 | P.DS ---
Providers Date of admission: 05/03/24 20:51 Attending physician: Tawny Winter Consults: 05/03/24 20:50 Consult Physician Routine Consulting Provider: Oracio Rizzo Consult Reason/Comments: afibRVR Do you want consulting provider notified?: Yes Primary care physician: Arianne Woodruff Hospital Course: Discharge diagnoses; A-fib with RVR, currently normal sinus rhythm Leukocytosis, possibly reactive to above Mild transaminitis, likely secondary to daily alcohol use Euthyroid sick syndrome Hypertension Hospital course; Patient is a 48-year-old female with past medical history of atrial fibrillation anticoagulated with Eliquis, hypertension, anxiety, and daily alcohol use who presented to the ED last night with chief complaint of palpitations. Patient does endorse a history of A-fib and follows up with Dr. Rizzo, denies any history of ablations. She states generally her A-fib is rate controlled on her current regimen. She states that the palpitations came on yesterday suddenly and lasted about 2.5 hours. Patient endorses drinking a few glasses of wine daily. She denies any caffeine use or thyroid disorder. She denied any chest pain, shortness of breath, nausea, vomiting, diarrhea, chills, dizziness or lightheadedness. Patient was seen by cardiology who recommended 2D echo to assess cardiac function and then would make medication adjustments as needed. Physical Exam: General: nontoxic, no distress, appears at stated age Derm: warm, dry, intact Head: atraumatic, normocephalic, symmetric Eyes: EOMI, anicteric sclera ENT: Patient has bilateral ear tubes Mouth: no lip lesion, mucus membranes moist Cardiovascular: S1 S2 reg, no murmur, rubs, or gallops Lungs: CTA bilateral, bilateral rhonchi, no rales, no accessory muscle use Abdominal: soft, non-tender to palpataion, no appreciable organomegaly Extremities: no gross muscle atrophy, no edema, no contractures, 1+ bilateral lower extremity edema to the mid awad Neuro: Alert, Oriented, CNII-XII grossly intact, gait normal Psych: well appearing, appropriate affect Dictation was produced using [employer] dictation software. please excuse any grammatical, word or spelling errors. Patient was not cleared by primary team or cardiology for discharge. Patient verbalized agreement to risks and left AGAINST MEDICAL ADVICE. Plan - Discharge Summary New Discharge Prescriptions: No Action Metoprolol Succinate (ER) [Toprol XL] 100 mg PO DAILY Valsartan 320 mg PO DAILY Discharge Medication List Metoprolol Succinate (ER) [Toprol XL] 100 mg PO DAILY 08/09/21 [History] Valsartan 320 mg PO DAILY 05/03/24 [History] Follow up Appointment(s)/Referral(s): Arianne Woodruff MD [Primary Care Provider] - 1-2 days Discharge Disposition: LEFT AGAINST MEDICAL ADVICE
== END 2024-05-04 17:19 | disposition left against medical advice (07) ==
LOC: EC 19:16 → 3SCARD 20:51 → INTOOBSV 20:51 → 4SSUR 05-04 14:03 → UNDODISIN 05-04 17:19
PROVIDERS: ADMIT Hospitalist; ATTEND Hospitalist
DX: I48.0 Paroxysmal atrial fibrillation (principal); D72.829 Elevated white blood cell count, unspecified; E07.81 Sick-euthyroid syndrome; E66.9 Obesity, unspecified; F41.9 Anxiety disorder, unspecified; I47.10 Supraventricular tachycardia, unspecified; I10 Essential (primary) hypertension; R74.01 Elevation of levels of liver transaminase levels; Z79.01 Long term (current) use of anticoagulants; Z79.899 Other long term (current) drug therapy; Z68.33 Body mass index [BMI] 33.0-33.9, adult; Z53.29 Procedure and treatment not carried out because of patient's decision for other reasons
CPT/HCPCS: 96368; 96361; 96365; 96366 ×2; 96375; 99291; 93005; 93306; 84439; 80053 ×2; 83735; 84443; 84484 ×2; 85025 ×2; 85610; 85730 ×2; G0378 ×2; J1644 ×3; J3475; 96367; 96376